=== PATIENT | female | born 1985 | race Caucasian/White ===

== ENCOUNTER 2023-03-04 09:30 | Outpatient (CLI) | payer OTHER, SELFPAY | END 2023-03-04 09:31 | disposition home or self-care (01) | LOC: NFLDREF 03-06 09:15 | PROVIDERS: Visit Provider Nurse Practitioner Family | DX: R50.9 Fever, unspecified (principal); N12 Tubulo-interstitial nephritis, not specified as acute or chronic | CPT/HCPCS: 87086; 87186 ==

== ENCOUNTER 2023-05-24 14:56 | Outpatient (CLI) | payer OTHER, SELFPAY | END 2023-05-24 14:57 | disposition home or self-care (01) | LOC: NFLDREF 05-31 16:23 | PROVIDERS: Visit Provider Nurse Practitioner Family | DX: R30.0 Dysuria (principal); M54.50 Low back pain, unspecified | CPT/HCPCS: 87086 ==

== ENCOUNTER 2024-08-20 17:35 | Emergency (ER) | payer OTHER, SELFPAY ==
--- OUTSIDE RECORDS SUMMARY | 2024-08-20 17:36 | XMS_ITS | Encounter Summary ---
Author Organization [facility] Address [address] [place] [address] Care Team Providers Care Yarding Supervisor Name Role Phone Pcp, Pt Declines Primary Care Provider [phone] Encounter Details Date Type Department Care Team (Late st Contact Info) Description 07/15/2014 Correspondence [facility] Psychiatry [address] [place] [address] Michaela Morrissey MD [address] [place] [address] STATEMENT OF NON COVERAGE Social History Tobacco Use Types Packs/Day Years Used Date Smoking Tobacco: Former Cigarettes 0.3 4 0 10/21/2008 - 10/21/2012 Smokeless Tobacco: Never Alcohol Use Standard Drinks/Week Comments Yes 0 (1 standard drink = 0.6 oz pur e alcohol) social/holidays Comments No Sex and Gender Information Value Date Recorded Sex Assigned at Not on file Legal Sex Female 6:11 AM CDT Gender Identity Not on file Sexual Orientation Not on file Occupation Industry Job Start Date Job End Date [employer] Not on file Not on file 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 [address] Natalya Nguyen MD [address] [place] [address] documented as of this encounter Visit Diagnoses Not on filedocumented in this encounter Additional Health Concerns Infection Onset Date Last Indicated Resolved Time R/O COVID19 03/30/2020 03/30/2020 03/31/2020 9:53 AM AGENCY SALES DIRECTOR documented as of this encounter Care Teams Yarding Supervisor Relationship Specialty Start Date End Date Pcp, [place] [address] PCP - General 12/22/17 documented as of this encounter
--- OUTSIDE RECORDS SUMMARY | 2024-08-20 17:36 | XMS_ITS | Encounter Summary ---
Author Organization [facility] Address [address] [place] [address] Care Team Providers Care Enrollment Processor Name Role Phone Pcp, Pt Declines Primary Care Provider [phone] Encounter Details Date Type Department Care Team (Late st Contact Info) Description 10/29/2013 Emergency Room External to [facility] B[facility] Social History Tobacco Use Types Packs/Day Years [...] Industry Job Start Date Job End Date Not on file Not on file Not on file Not on file documented as of this encounter Plan of Treatment Upcoming Encounters Date Type Department Care Team (Late st Contact Info) Description 09/05/2024 2:00 PM CDT Appointment [place] [address] Allergy [address] [facility] [place] [address] Natalya Nguyen MD [address] [place] [address] documented as of this encounter Visit Diagnoses Not on filedocumented in this encounter Additional Health Concerns Infection Onset Date Last Indicated Resolved Time R/O COVID19 03/30/2020 03/30/2020 03/31/2020 9:53 AM SHOWROOM CONSULTANT documented as of this encounter Care Teams Enrollment Processor Relationship Specialty Start Date End Date Pcp, [place] [address] PCP - General 12/22/17 documented as of this encounter
--- OUTSIDE RECORDS SUMMARY | 2024-08-20 17:37 | XMS_ITS | Encounter Summary ---
Author Organization [facility] Address [address] [place] [address] Care Team Providers Care Picker/Puller Name Role Phone Pcp, Pt Declines Primary Care Provider [phone] Reason for Visit * Reason Comments Refill INCASSIA 0.35 MG tab let [Pharmacy Med Name: INCASSIA 0.35 MG TABLET] Encounter Details Date Type Department Care Team (Late st Contact Info) Description 08/06/2024 Refill [facility] [address] [place] [address] Trinity Lamar, FUEL VERIFICATION TECHNICIAN, [facility] [address] [place], [place] [id number] Refill (INCASSIA 0.35 MG tablet [Pharmacy Med Name: INCASSIA 0.35 MG TABLET]) Social History Tobacco Use Types Packs/Day Years Used Date Smoking Tobacco: Never Cigarettes 0.3 4 - 10/21/2012 Smokeless Tobacco: Never Alcohol Use Standard Drinks/Week Comments Yes 0 (1 standard drink = 0.6 oz pur e alcohol) social/holidays PHQ-2 Answer Date Recorded PHQ-2 Score 2 10/30/2023 Financial Resource Strain Answer Date R ecorded Is it hard for you to pay fo r the very basics like food, housing, medical care or heating? No 10/30/2023 Food Insecurity Answer Date Recorded Does your food run out before you have the money to buy more? No 10/30/2023 Transportation Needs Answer Date Record ed Does a lack of transportatio n keep you from your medical appointments or from getting your medications? 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 Sujatha Lr RN SP wood miller Triage 08/06/2024, 12:50 PM * Heri Smith Xrwcomm - 08/06/2024 11:54 AM CDT INCASSIA 0.35 MG tablet [Pharmacy Med Name: INCASSIA 0.35 MG TABLET] Medication started: 10/11/2023 Last ordered by TRINITY LAMAR: 10/11/2023 (300 days ago) QTY: 84, Refills: 3, Sig: take 1 tablet (0.35 mg) by mouth daily. (changed but equivalent) -> Refill x 3 months (until due for an office visit) Last qualifying visit: 10/11/2023 (with TRINITY LAMAR) Next scheduled visit: [facility] Embedded Refills, Reference: [id number], 08/06/2024 11:54:32 AM CDT, Pool: FARHEEN RICH REFILL OB/ FBI PROFILER [[id number]] ([id number]) documented in this encounter Plan of Treatment Upcoming Encounters Date Type Department Care Team (Late st Contact Info) Description 09/05/2024 2:00 PM CDT Appointment [facility] [address] [place] [address]. [place] [address] Natalya Nguyen MD [address] [place] [phone] documented as of this encounter Visit Diagnoses Diagnosis Oral contraceptive pill surveillance Surveillance of previously prescribed contraceptive pill documented in this encounter Care Teams Picker/Puller Relationship Specialty Start Date End Date Pcp, Mayank Peguero MD [place], [place] [phone] PCP - General 12/22/17 documented as of this encounter
--- OUTSIDE RECORDS SUMMARY | 2024-08-20 17:37 | XMS_ITS | Clinical Summary ---
Author Organization [facility] Address [address] [place] [address] Care Team Providers Care Grassland Conservationist Name Role Phone Pcp, Pt Declines Primary Care Provider [phone] Source Comments You are receiving this document as you are listed as the primary care provider,follow-up provider, or the patient has been referred to you for consultation.This is in compliance with the Medicare andKindred Healthcarecaid EHR Incentive Program,which states Providers who transition their patient to another setting of careor provider of care or refers their patient to another provider of care shouldprovide summary care record for each transition of care or referral. [facility] Allergies No known active allergies Medications * This document contains information received from the source organization and may not represent a complete record from that organization. traZODone (DESYREL) 50 MG tablet Take 1-2 Tablets (50-100 mg) by mouth daily at bedtime. 60 Tablet 4 08/15/19 24 Active ALPRAZolam (XANAX) 0.25 MG tablet Take 1 Tablet (0.25 mg) by mouth two times daily as needed. 20 Tablet 4 08/15/19 24 Active triamcinolone acetonide (KENALOG) 0.1 % creamIndications: Rash and nonspecific skin eruption Apply topically two times a day. 80 g 3 12/29/19 24 Active propranolol (INDERAL) 20 MG tabletIndications :Elevated blood pressure reading without diagnosis of hypertension,Anxi ety ([facility]),Hot flashes TAKE 1-2 TABLETS BY MOUTH TWICE DAILY 360 Tablet 1 04/25/20 24 Active amphetamine-dextr oamphetamine XR (ADDERALL XR) 30 MG 24 hour release capsule Take 1 Capsule (30 mg) by mouth daily. 30 Capsule 05/13/20 24 Active amphetamine-dextr oamphetamine XR (ADDERALL XR) 30 MG 24 hour release capsule Take 1 Capsule (30 mg) by mouth daily for 30 days. 1 of 3 30 Capsule 06/14/19 25 Active amphetamine-dextr oamphetamine XR (ADDERALL XR) 30 MG 24 hour release capsule Take 1 Capsule (30 mg) by mouth daily for 30 days. 2 of 3 Do not start before July 12, 2024. 30 Capsule 07/12/19 25 Active amphetamine-dextr oamphetamine XR (ADDERALL XR) 30 MG 24 hour release capsule Take 1 Capsule (30 mg) by mouth daily for 30 days. 3 of 3 Do not start before August 11, 2024. 30 Capsule 08/12/19 25 025 Active citalopram (CELEXA) 40 MG tablet Take 1 Tablet (40 mg) by mouth daily. Pt is due for an appt with provider. [facility] schedule for further refills [phone] . 30 Tablet 07/27/19 25 Active INCASSIA 0.35 MG tabletIndications :Oral contraceptive pill surveillance TAKE 1 TABLET BY MOUTH EVERY DAY 90 Tablet 08/07/19 25 Active norethindrone, contraceptive, (MICRONOR) 0.35 MG tabletIndications :Oral contraceptive pill surveillance Take 1 Tablet (0.35 mg) by mouth daily. 84 Tablet 3 10/11/19 24 025 Discontinued citalopram (CELEXA) 20 MG tablet Take 2 Tablets (40 mg) by mouth daily. 60 Tablet 4 03/20/20 24 025 Discontinued Active Problems Problem Noted Date Diagnosed Date Depressive disorder 07/19/2010 Overview (01/11/2017): Depressive disorder, not elsewhere classified ([facility]) Attention deficit hyperactivity disorder (ADHD) 07/19/2010 Primary osteoarthritis, left ankle and foot Resolved Problems Problem Noted Date Diagnosed Date Resolved Date Screening for malignant neoplasm of cervix 03/27/2014 06/29/2022 Overview (06/29/2022): From visit on 03/20/14: Previous history of abnormal paps: yes Pt contacted. States her history was abnormal about 8 years ago. She said she needed to go in for a colp but that result was normal. No treatment was needed. All of her pap testing since then has been normal. 2013 NILM 2022 NILM HPV negative 36 y.o. PLAN, per ASCCP Guidelines: Cotest 05/2027 Encounters Date Type Department Care Team Description 08/06/2024 Refill [facility] [address] [place] [address] Trinity Lamar APRN, CNM Refill (INCASSIA 0.35 MG tablet [Pharmacy Med Name: INCASSIA 0.35 MG TABLET]) 07/26/2024 Refill [facility] Psychiatry [address] [place] [address] Michaela Morrissey MD Refill 06/24/2024 2:00 PM [facility] Telemedicine [address] [address] Erick Garg MD Chronic rhinitis (Primary Dx) 06/12/2024 Refill [facility] Psychiatry [address] [place] [address] Michaela Morrissey MD Refill from Last 3 Months Immunizations Immunization Administration Dates Next Due 4vHPV (Gardasil) 12/21/2010 Flu Vac (3+ yrs) 04/22/2011 Influenza IIV4 (Quadrivalent) 0.5mL (41458) 04/22,03/20/2014 MPSV4 (Menomune) 12/24/2002 Moderna Monovalent 12+ 07/09/2020,05/26/2020 Family History Medical History Relation Name Comments Cancer, Breast Mother Coronary Artery Disease Maternal Grandfather ?[place] Macular Degeneration Maternal Grandmother Other Other lung CA Diabetes, Type II Paternal Grandmother Amblyopia/Strabismus Negative Family History Blindness Negative Family History Cataract Negative Family History Glaucoma Negative Family History Retinal Detachment Negative Family History Relation Name Status Comments Father Alive Mother Alive Brother Alive (plus one stepb rother) Maternal Grandfather Maternal Grandmother Other Paternal Grandmother Social History Tobacco Use Types Packs/Day Years Used Date Smoking Tobacco: Never Cigarettes 0.3 4 - 10/21/2012 Smokeless Tobacco: Never Tobacco Cessation:Counseling Given: Not Answered Alcohol Use Standard Drinks/Week Comments Yes 0 [...] Industry Job Start Date Job End Date [employer] Not on file Not on file 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 Not on file Not on file [employer] Not on file Not on file Not on file Last Filed Vital Signs Vital Sign Reading Time Taken Comments Blood Pressure 126/92 12/29/2023 3:10 PM CDT Pulse 88 12/29/2023 3:10 PM CDT Temperature 37 C (98.6 F) 09/06/2021 8:22 AM CDT Respiratory Rate 16 12/29/2023 3:08 PM CDT Oxygen Saturation 100% 12/05/2022 2:50 PM CDT Inhaled Oxygen Concentration - - Weight 90.7 kg (200 lb) 12/29/2023 3:08 PM CDT Height 177.8 cm (5' 10) 12/29/2023 3:08 PM CDT Body Mass Index 28.7 12/29/2023 3:08 PM CDT Plan of Treatment Upcoming Encounters Date Type Department Care Team (Late st Contact Info) Description 09/05/2024 2:00 PM CDT Appointment [facility] 3800 Allergy [address] [facility] [place] [address] Natalya Nguyen MD [address] [place] [address] [place] [address] Health Maintenance Due Date Last Done Comments Diabetes Screening- (based on age and BMI) 1984 Hep C Screening (Preventive Services) 1984 DTaP/Tdap/Td (1 - Tdap) 10/05/2003 HepB (1) 10/05/2003 HPV Vaccine (2 - 3-dose series) 01/18/2011 12/21/2010 COVID-19 Vaccine (3 - season) 2024 07/09/2020, 05/26/2020 Influenza (#1) 2024 05/16/2021, 02/21, 04/22/2011 Adult Preventive Visit 06/16/2024 , 09/25/2018, 12/03/2014, Additional history exists Cervical Cancer Screening 06/16/20272022, 06/16/2022, 03/20/2014 Zoster/Shingles (1 of 2) 2034 MCV4 Aged Out 12/24/2002 No longer eligi ble based on patient's age to complete this topic HIV Screening (Preventive Services) Completed 03/20/2014 HepA Aged Out No longer eligi ble based on patient's age to complete this topic Hib Aged Out No longer eligi ble based on patient's age to complete this topic IPV (Polio) Aged Out No longer eligi ble based on patient's age to complete this topic Meningococcal B Aged Out No longer el igible based on patient's age to complete this topic Pneumococcal Aged Out No longer eligi ble based on patient's age to complete this topic Procedures Procedure Name Priority Date/Time Associated Diagnosis Comments CYTOLOGY (PAP) Routine 06/16/2022 1:17 PM SALES NEGOTIATOR Pap smear for cervical cancer screening HIV ANTIBODY Routine 03/20/2014 2:26 PM CDT Screen for STD (sexually transmitted disease) from Last 3 Months or Most Recently Relevant to Health Maintenance Results * PAP Test (06/16/2022 1:17 PM SALES NEGOTIATOR) Case Report Pap Case: [id number] Authorizing Provider: Trinity Lamar APRN, CNM Collected: 06/16/2022 1317 Ordering Location: [facility] Received: 06/16/2022 1340 [facility] Clinic First Screen: Susan Valenzuela CT (ASCP) Specimen: Pap Test, Routine, Cervix/Endocervix 06/29/2022 10:13 AM [facility] Pap Specimen Adequacy Satisfactory for evaluation, endocervical/miramontes sformation zone component present. 06/29/2022 10:13 AM [facility] Pap Interpretation (NILM) Negative for intraepithelial lesion or malignancy. 06/29/2022 10:13 AM [facility] at 1013 SALES NEGOTIATOR Pap Disclaimer The Pap test is a screening test designed to aid in the detection of cervical cancer and its precursor lesions. It is not a diagnostic procedure and should not be used as the sole means of detecting cervical cancer. Both false-positive and false-negative results may occur. 06/29/2022 10:13 AM [facility] Gross Description The specimen is received in SurePath fixative and properly labeled. 1 Pap-stained SurePath slide is prepared. 06/29/2022 10:13 AM [facility] Embedded Images 10:13 AM [facility] Other Specimen Type ENTIRE ENDOCERVIX / Unknown 06/16/2022 1:17 PM SALES NEGOTIATOR 06/16/2022 1:40 PM SALES NEGOTIATOR Comment:LMP: No LMP recorded . us Trinity Lamar APRN, CNM LAB PATHOLOGY Final Res ult [address] [address], [facility] [phone] * HIV ANTIBODY (03/20/2014 2:26 PM CDT) HIV 1/2 Antibody Negative (Non Reactive) NEGNR [facility] Comment: HIV Antibody testing may be falsely negative during the window period. If the patient has had recent exposure (within the past four weeks), consider contacting Infectious Diseases for clarification. 03/20/2014 2:26 PM CDT 03/20/2014 2:34 PM CDT Narrative [facility] - 03/21/2014 12:25 PM CDT Performed at [facility], [address] [place] [address] Brandon Beach APRN, CNM LAB_1 Final Result [facility] [phone] from Last 3 Months or Most Recently Relevant to Health Maintenance Insurance MEDICA ELECT MEDICA ELECT [address] [facility] [address] [place] [id number] evolso evolso evolso Care Teams Grassland Conservationist Relationship Specialty Start Date End Date Pcp, [place] [address] PCP - General 12/22/17
--- OUTSIDE RECORDS SUMMARY | 2024-08-20 17:37 | XMS_ITS | Clinical Summary ---
Author Organization [facility] [facility] Address [address] [place] [address] Care Team Providers Care Epic Director Name Role Phone Pcp, No Primary Care Provider Unavailabl e Allergies No known active allergies Medications No known medications Encounters Date Type Department Care Team Description 06/07/2024 8:41 PM INTERNATIONAL ACCOUNT EXECUTIVE - 06/07/2024 9:24 PM INTERNATIONAL ACCOUNT EXECUTIVE Emergency [place] [id number] [place] [address] Sandeep Edge PA Contusion of left elbow, initial encounter (Primary Dx) Discharge Disposition: Home Self Care 06/07/2024 Travel from Last 3 Months Social History Tobacco Use Types Packs/Day Years Used Date Smoking Tobacco: Never Assessed Comments No Sex and Gender Information Value Date Recorded Sex Assigned at Not on file Legal Sex Female 7:39 AM INTERNATIONAL ACCOUNT EXECUTIVE Gender Identity Not on file Sexual Orientation Not on file Obstetrics History Last Filed Vital Signs Vital Sign Reading Time Taken Comments Blood Pressure 128/91 06/07/2024 8:16 PM INTERNATIONAL ACCOUNT EXECUTIVE Pulse 100 06/07/2024 8:16 PM INTERNATIONAL ACCOUNT EXECUTIVE Temperature 36.1 C (97 F) 06/07/2024 8:16 PM INTERNATIONAL ACCOUNT EXECUTIVE Respiratory Rate 16 06/07/2024 8:16 PM INTERNATIONAL ACCOUNT EXECUTIVE Oxygen Saturation 97% 06/07/2024 8:16 PM INTERNATIONAL ACCOUNT EXECUTIVE Inhaled Oxygen Concentration - - Weight 83.9 kg (185 lb) 06/07/2024 8:16 PM INTERNATIONAL ACCOUNT EXECUTIVE Height 177.8 cm (5' 10) 06/07/2024 8:16 PM INTERNATIONAL ACCOUNT EXECUTIVE Body Mass Index 26.54 06/07/2024 8:16 PM INTERNATIONAL ACCOUNT EXECUTIVE Plan of Treatment Health Maintenance Due Date Last Done Comments Tdap 10/05/1995 Depression screening for age 12+ 1996 HIV for age 15-65 10/05/1999 BMI (ht and wt on same day) for age 18+ 2002 Hepatitis C screening for ag e 18-79 2002 Tetanus booster 2004 Pap test for age 21-65 2005 (IA) Influenza for age 9-49 01/21/2024 COVID-19 vaccine series ( season) 2024 07/09/2020, 05/26/2020 Pneumococcal series for age 6-49 Aged Out No longer eligible b ased on patient's age to complete this topic Procedures Procedure Name Priority Date/Time Associated Diagnosis Comments XR ELBOW 3 VIEWS LEFT STAT 06/07/2024 8:42 PM INTERNATIONAL ACCOUNT EXECUTIVE from Last 3 Months Results * XR ELBOW 3 VIEWS LEFT (06/07/2024 8:42 PM INTERNATIONAL ACCOUNT EXECUTIVE) Anatomical Region Laterality Modality ELBOW L Digital Radiogra phy 06/07/2024 9:02 PM INTERNATIONAL ACCOUNT EXECUTIVE Narrative 06/07/2024 9:02 PM INTERNATIONAL ACCOUNT EXECUTIVE For Patients: As a result of the Cures Act, medical imaging exams and procedure reports are released immediately into your electronic medical record. You may view this report before your referring provider. If you have questions, please contact your health care provider. Indication: Left elbow pain and swelling. Technique: Three views of the left elbow. Comparison: None. Findings: No acute fracture, dislocation, or suspicious osseous lesion. Radio capitellar and humeral ulnar alignment are maintained. No elbow joint effusion. Minimal posterior soft tissue swelling. No suspicious soft tissue calcifications. Impression: No acute osseous abnormality. Minimal posterior soft tissue swelling. Correlate for mild bursitis. Dictated by John Flores MD @ 06/07/2024 9:02:45 PM (Electronically Signed) Procedure Note John Flores MD - 06/07/2024 For Patients: As a result of the Cures Act, medical imagingexams and procedure reports are released immediately into your electronicmedical record. You may view this report before your referring provider.If you have questions, please contact your health care provider. Indication: Left elbow pain and swelling. Technique: Three views of the left elbow. Comparison: None. Findings: No acute fracture, dislocation, or suspicious osseous lesion. Radiocapitellar and humeral ulnar alignment are maintained. No elbow jointeffusion. Minimal posterior soft tissue swelling. No suspicious softtissue calcifications. Impression: No acute osseous abnormality. Minimal posterior soft tissue swelling.Correlate for mild bursitis. Dictated by John Flores MD @ 06/07/2024 9:02:45 PM (Electronically Signed) us [facility] Triage GENERAL IMAGING Final Result from Last 3 Months [place] [id number] * Guarantor: WAD CONTRACT,[facility] Account Type Relation to Patient Date of Phone Billing Address Contract [address] [facility] [address] [place] [address] Care Teams Epic Director Relationship Specialty Start Date End Date Pcp, No . PCP - General 06/28/18
--- OUTSIDE RECORDS SUMMARY | 2024-08-20 17:37 | XMS_ITS | Encounter Summary ---
Author Organization [employer] Address [address] [place] [address] Care Team Providers Care Brief Writer Name Role Phone Pcp, Pt Declines Primary Care Provider [phone] Reason for Visit * Reason Comments Refill Encounter Details Date Type Department Care Team (Late st Contact Info) Description 07/26/2024 Refill [facility] Psychiatry [address] [place] [address] Michaela Morrissey MD [address] [place] [address] Refill Social History Tobacco Use Types Packs/Day Years [...] Industry Job Start Date Job End Date 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 No follow up appointment scheduled. Will route to [place] to attempt to schedule patient. You may close the encounter once pt has been scheduled or after 1 attempt made. FORM SOFTWARE ENGINEER documented in this encounter Plan of Treatment Upcoming Encounters Date Type Department Care Team (Late st Contact Info) Description 09/05/2024 2:00 PM CDT Appointment [facility] 3800 Allergy [address] [facility] [place], [place] [phone] Natalya Nguyen MD [address] [place] [phone] documented as of this encounter Visit Diagnoses Not on filedocumented in this encounter Care Teams Brief Writer Relationship Specialty Start Date End Date Pcp, Pt MD Marielena [place], [place] [id number] PCP - General 12/22/17 documented as of this encounter
--- OUTSIDE RECORDS SUMMARY | 2024-08-20 17:37 | XMS_ITS | Encounter Summary ---
[facility] Address [address] [place] [address] Care Team Providers Care Contract Negotiator Name Role Phone Pcp, Pt Declines Primary Care Provider [phone] Encounter Details Date Type Department Care Team (Late st Contact Info) Description 06/24/2016 Correspondence External to External, [place] [address] PRIOR AUTHORIZATION Social History Tobacco Use Types Packs/Day Years [...] Industry Job Start Date Job End Date [employer] Not on file Not on file Not o n file [employer] Not on file Not on file Not on file [employer] Not on file Not on file Not on file documented as of this encounter Plan of Treatment Upcoming Encounters Date Type Department Care Team (Late st Contact Info) Description 09/05/2024 2:00 PM CDT Appointment [facility] [address] [facility] [place] [address] Natalya Nguyen MD [address] [place] [address] documented as of this encounter Visit Diagnoses Not on filedocumented in this encounter Additional Health Concerns Infection Onset Date Last Indicated Resolved Time R/O COVID19 03/30/2020 03/30/2020 03/31/2020 9:53 AM GENERAL OPERATOR documented as of this encounter Care Teams Contract Negotiator Relationship Specialty Start Date End Date Pcp, [place] [address] PCP - General 12/22/17 documented as of this encounter
--- OUTSIDE RECORDS SUMMARY | 2024-08-20 17:37 | XMS_ITS | Clinical Summary ---
Author Organization [facility] Address [address] [place] [address] Care Team Providers Care Administrative Library Assistant Name Role Phone [facility] Primary Care Provider Allergies No known active allergies Medications Amphetamine-Dext roamphetamine (ADDERALL PO) Take 30 mg by mouth as needed Active norgestimate-eth inyl estradiol (ORTHO-CYCLEN, SPRINTEC) 0.25-35 MG-MCG tablet Take 1 tablet by mouth daily Active Social History Tobacco Use Types Packs/Day Years Used Date Smoking Tobacco: Former Cigarettes Q uit: 10/20/2012 Smokeless Tobacco: Never Alcohol Use Standard Drinks/Week Comments Yes 0 (1 standard drink = 0.6 oz pur e alcohol) occ Adolescent Education Answer Date Record ed Getting School Help Needed Not on file 02/20 Comments No Sex and Gender Information Value Date Recorded Sex Assigned at Not on file Legal Sex Female 3:34 AM DEVELOPMENT PROFESSIONAL Gender Identity Not on file Sexual Orientation Not on file Last Filed Vital Signs Vital Sign Reading Time Taken Comments Blood Pressure 139/100 07/13/2022 2:39 AM DEVELOPMENT PROFESSIONAL Pulse 84 07/13/2022 2:39 AM DEVELOPMENT PROFESSIONAL Temperature 36.4 C (97.6 F) 07/13/2022 2:39 AM DEVELOPMENT PROFESSIONAL Respiratory Rate 16 07/13/2022 2:39 AM DEVELOPMENT PROFESSIONAL Oxygen Saturation 100% 07/13/2022 2:39 AM DEVELOPMENT PROFESSIONAL Inhaled Oxygen Concentration - - Weight 84 kg (185 lb 1.6 oz) 05/15/2017 9:20 AM DEVELOPMENT PROFESSIONAL Height 177.8 cm (5' 10) 07/06/2015 1:42 PM DEVELOPMENT PROFESSIONAL Body Mass Index 26.56 07/06/2015 1:42 PM DEVELOPMENT PROFESSIONAL Plan of Treatment Health Maintenance Due Date Last Done Comments ADVANCE CARE PLANNING 1984 ANNUAL REVIEW OF HM ORDERS 1984 YEARLY PREVENTIVE VISIT 10/05/1987 HIV SCREENING 10/05/1999 HEPATITIS C SCREENING 2002 HEPATITIS B IMMUNIZATION (1 of 3 - 19+ 3-dose series) 10/05/2003 DIABETES SCREENING 09/13/2010 09/14/2007 HPV IMMUNIZATION (2 - 3-dose series) 01/18/2011 12/21/2010 COVID-19 Vaccine (3 - season) 2024 07/09/2020, 05/26/2020 INFLUENZA VACCINE (#1) 2024 , 05/16/2021, 03/28/2020, Additional history exists PHQ-2 (once per calendar year) 2024 PAP 06/16/2025 06/16/2022, 06/16/2022 DTAP/TDAP/TD IMMUNIZATION (3 - Td or Tdap) 02/28/2030 02/29/2020, 10/16/2009 ZOSTER IMMUNIZATION (1 of 2) 2034 MENINGITIS IMMUNIZATION Aged Out 10/16/2009, 12/24 No longer eligible based on patient's age to complete this topic Pneumococcal Vaccine: Pediatrics (0 to 5 Years) and At-Risk Patients (6 to 49 Years) Aged Out No longer eligible based on patient's age to complete this topic Procedures Procedure Name Priority Date/Time Associated Diagnosis Comments COMPREHENSIVE METABOLIC PANEL STAT 09/14/2007 7:45 PM CDT from Last 3 Months or Most Recently Relevant to Health Maintenance Results * (ABNORMAL) Comprehensive metabolic panel (09/14/2007 7:45 PM CDT) Sodium 140 133 - 144 mmol/L [facility] Potassium 3.3(L) 3.4 - 5.3 mmol/L [facility] Chloride 98 94 - 109 mmol/L [facility] Carbon Dioxide 31 20 - 32 mmol/L [facility] Glucose 95 60 - 99 mg/dL [facility] Urea Nitrogen 8 5 - 24 mg/dL [facility] Creatinine 0.99 0.60 - 1.30 mg/dL [facility] GFR Estimate 75 >60 mL/min/1.7 m2 [facility] GFR Estimate If Black >90 >60 mL/min/1.7 m2 [facility] Calcium 9.1 8.5 - 10.4 mg/dL [facility] AST 33 0 - 45 U/L [facility] Protein Total 8.5(H) 6.0 - 8.2 g/dL [facility] Anion Gap 11 6 - 17 mmol/L [facility] Albumin 4.9(H) 3.3 - 4.6 g/dL [facility] ALT 12 0 - 50 U/L [facility] Alkaline Phosphatase 94 40 - 150 U/L [facility] Bilirubin Total 0.7 0.2 - 1.3 mg/dL [facility] 09/14/2007 7:45 PM CDT 09/14/2007 7:48 PM CDT us Trista Bonilla MD LAB - BLOOD ORDERABLES Marni dobson Result MISYS from Last 3 Months or Most Recently Relevant to Health Maintenance Insurance MEDICA ELECT none (Work) [id number] [place] [id number] [employer] [facility] Care Teams Administrative Library Assistant Relationship Specialty Start Date End Date Clinic, [facility] [address] [place] [address] PCP - General 10/29/13
--- OUTSIDE RECORDS SUMMARY | 2024-08-20 17:37 | XMS_ITS | Continuity of Care Document ---
Author Name [facility] Organization [facility] Care Team Providers Care Dry Heat Cabinet Attendant Name Role Phone [facility] Unavailable Unavailable Immunizations Combined list of available immunizations from the Department of Defense and Veterans Affairs facilities. Immunization Series Date Given Administered By Site Reaction Lot Number CVX Code Drug Supervisor Engraving Status Comments Source influenza, injectable, quadrivalent 2021 [id number] sanofi pasteur complet ed influenza , injectabl e, quadrival ent 04/22/22 Given Ambulat ory Pharmac y influenza, injectable, quadrivalent- pf 2020 [id number] 150 sanofi pasteur complet ed influenza , injectabl e, quadrival ent-pf 05/16/21 Given Ambulat ory Pharmac y COVID Vaccine Moderna 2020 TRANSCR IBED 207 complet ed COVID Vaccine Moderna 07/09/20 Given Ambulat ory Pharmac y COVID Vaccine Moderna 2020 TRANSCR IBED 207 complet ed COVID Vaccine Moderna 05/26/20 Given Ambulat ory Pharmac y influenza, injectable, quadrivalent- pf 2019 [id number] 150 Seqirus complet ed influenza , injectabl e, quadrival ent-pf 03/28/20 Given Ambulat ory Pharmac y tetanus-dipht h toxoids (Td) adult/adol 2019 [id number] sanofi pasteur complet ed tetanus-d iphth toxoids (Td) adult/ado l 02/29/20 Given Ambulat ory Pharmac y influenza, injectable, quadrivalent- pf 2018 [id number] 150 Seqirus complet ed influenza , injectabl e, quadrival ent-pf 04/28/19 Given Ambulat ory Pharmac y measles/mumps /rubella virus vaccine 2018 [id number] Merck & Company Inc complet ed measles/m umps/rube lla virus vaccine 09/22/18 Given Ambulat ory Pharmac y typhoid Vi capsular polysaccharid e vac 2018 [id number] sanofi pasteur complet ed typhoid Vi capsular polysacch aride vac 09/22/18 Given Ambulat ory Pharmac y anthrax vaccine 2018 [id number] Emergent Biosolutions complet ed anthrax vaccine 08/26/18 Given Ambulat ory Pharmac y influenza, injectable, quadrivalent- pf 2017 [id number] 150 Seqirus complet ed influenza , injectabl e, quadrival ent-pf 03/25/18 Given Ambulat ory Pharmac y influenza, injectable, quadrivalent 2016 [id number] Reelation ok complet ed influenza , injectabl e, quadrival ent 03/25/17 Given Ambulat ory Pharmac y influenza, seasonal, injectable-pf 2015 [id number] CSL Behring complet ed influenza , seasonal, injectabl e-pf 03/26/16 Given Ambulat ory Pharmac y anthrax vaccine 2014 [id number] Emergent Biosolutions complet ed anthrax vaccine 04/03/15 Given Ambulat ory Pharmac y influenza, injectable, quadrivalent- pf 2014 [id number] ID Biomedical comple t ed influenza , injectabl e, quadrival ent-pf 03/16/15 Given Ambulat ory Pharmac y typhoid Vi capsular polysaccharid e vac 2014 [id number] sanofi pasteur complet ed typhoid Vi capsular polysacch aride vac 08/30/14 Given Ambulat ory Pharmac y anthrax vaccine 2014 [id number] Emergent Biosolutions complet ed anthrax vaccine 08/30/14 Given Ambulat ory Pharmac y influenza virus vaccine, unspecified 2013 TRANSCR IBED 88 complet ed influenza virus vaccine, unspecifi ed 03/20/14 Given Ambulat ory Pharmac y Influenza, injectable, MDCK-pf 2012 [id number] 153 Novartis Pharmaceutica ls complet ed Influenza , injectabl e, MDCK-pf 03/23/13 Given Ambulat ory Pharmac y Influenza, injectable, MDCK-pf 2012 [id number] 153 Novartis Pharmaceutica ls complet ed Influenza , injectabl e, MDCK-pf 03/23/13 Given Ambulat ory Pharmac y influenza, seasonal, injectable-pf 2011 [id number] 140 sanofi pasteur complet ed influenza , seasonal, injectabl e-pf 03/05/12 Given Ambulat ory Pharmac y influenza, seasonal, injectable-pf 2011 [id number] 140 sanofi pasteur complet ed influenza , seasonal, injectabl e-pf 03/05/12 Given Ambulat ory Pharmac y influenza, seasonal, injectable 2010 141 Novartis Pharmaceutica ls complet ed influenza , seasonal, injectabl e 04/22/11 Given Ambulat ory Pharmac y influenza, seasonal, injectable 2010 141 Novartis Pharmaceutica ls complet ed influenza , seasonal, injectabl e 04/22/11 Given Ambulat ory Pharmac y hepatitis A adult vaccine 2010 [id number] 52 GlaxoSmithKli ne complet ed hepatitis A adult vaccine 05/29/10 Given Ambulat ory Pharmac y hepatitis A adult vaccine 2010 [id number] 52 GlaxoSmithKli ne complet ed hepatitis A adult vaccine 05/29/10 Given Ambulat ory Pharmac y influenza virus vaccine,split 2009 [id number] CSL Behring complet ed influenza virus vaccine,s plit 02/25/10 Given Ambulat ory Pharmac y influenza virus vaccine,split 2009 [id number] 15 CSL Behring complet ed influenza virus vaccine,s plit 02/25/10 Given Ambulat ory Pharmac y hepatitis A adult vaccine 2009 [id number] 52 GlaxoSmithKli ne complet ed hepatitis A adult vaccine 10/21/09 Given Ambulat ory Pharmac y hepatitis A adult vaccine 2009 [id number] 52 GlaxoSmithKli ne complet ed hepatitis A adult vaccine 10/21/09 Given Ambulat ory Pharmac y tuberculin purified protein derivative 2009 [id number] 96 sanofi pasteur complet ed tuberculi n purified protein derivativ e 10/18/09 Given Ambulat ory Pharmac y Novel influenza-H1N 1-09, injectable 2009 [id number] 127 Novartis Pharmaceutica ls complet ed Novel influenza -[id number], injectabl e 10/16/09 Given Ambulat ory Pharmac y tetanus, diphtheria, acellular pertu is 2009 [id number] 115 GlaxoSmithKli ne complet ed tetanus, diphtheri a, acellular pertussis 10/16/09 Given Ambulat ory Pharmac y influenza virus vaccine,split 2009 [id number] 15 CSL Behring complet ed influenza virus vaccine,s plit 10/16/09 Given Ambulat ory Pharmac y meningococcal A,C,Y,W-135 (MCV4P) 2009 [id number] 114 sanofi pasteur complet ed meningoco ccal A,C,Y,W-1 35 (MCV4P) 10/16/09 Given Ambulat ory Pharmac y poliovirus vaccine, inactivated 2009 [id number] 10 sanofi pasteur complet ed polioviru s vaccine, inactivat ed 10/16/09 Given Ambulat ory Pharmac y tetanus, diphtheria, acellular pertu is 2009 [id number] 1CA 115 GlaxoSmithKli ne complet ed tetanus, diphtheri a, acellular pertussis 10/16/09 Given Ambulat ory Pharmac y poliovirus vaccine, inactivated 2009 [id number] 10 sanofi pasteur complet ed polioviru s vaccine, inactivat ed 10/16/09 Given Ambulat ory Pharmac y meningococcal A,C,Y,W-135 (MCV4P) 2009 [id number] 114 sanofi pasteur complet ed meningoco ccal A,C,Y,W-1 35 (MCV4P) 10/16/09 Given Ambulat ory Pharmac y Novel influenza-H1N 1-09, injectable 2009 [id number] 1 127 Novartis Pharmaceutica ls complet ed Novel influenza -H4X0-72, injectabl e 10/16/09 Given Ambulat ory Pharmac y Procedures Combined list of: 1) Procedures from Department of Veterans Affairs facilities [facility], not all VA non-surgical procedures are included; 2) All procedures from the Department of Defense facilities. Procedure Procedure Type Code Date Perfomer Comments Sourc e No data available for this section Ambulatory P harmacy Assessment and Plan Combined list of future care activities from Department of Defense and Veterans Affairs facilities (e.g., assessment and plan notes, appointments, orders, and referrals). Additional future care activities may be listed in the Plan of Care section. Result Assessment and Plan Date Source Assessment and Plan No data available for this section 08/20/2024 Ambulatory Pharmacy Functional Status Combined list of recent functional and cognitive assessments recorded at Department of Defense and Veterans Affairs (VA).VA Functional Owen Measurement (FIM) Scale: 1 = Total Assistance (Subject = 0% +), 2 = Maximal Assistance (Subject = 25% +), 3 = Moderate Assistance (Subject = 50% +), 4 = Minimal Assistance (Subject = 75% +), 5 = Supervision, 6 = Modified Owen (Device), 7 = Complete Owen (Timely, Safely). Assessment Date/Time Source Assessment Type Assessment Skill Assessment Score Assessment Details No data available for this section
[2024-08-20 17:40] VITALS: BP 127/87; PULSE 78; RESP 18; TEMP 36.7; O2SAT 97; BMI 24.4
--- NOTE | 2024-08-20 17:51 | ED.GENADULT ---
HPI - General Adult General Chief complaint: Epistaxis/Nosebleed Stated complaint: bloody nose Time Seen by Provider: 08/20/24 17:44 History of Present Illness HPI narrative: Patient presents to the emergency department complaining of frequent bloody noses. Patient states this first began monday morning. Patient states when her nose starts bleeding they last about half an hour. Patient has woken up with blood on her bedding. Complains of some dizziness as well. 38-year-old woman presenting to the emergency department with concern of nose bleed. Primarily coming from the left nare but has apparently come from both sides before. 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 This has continued but escalated more recently when she has been found couple of times in a puddle of blood after falling asleep. She does refer to allergies and has had some long-term irritation deep in her throat. Acknowledges postnasal drip and is anticipating seeing ENT later this month. Dizziness mentioned on triage appears to be more related to rough shift work often working nights and she is quite tired at this point. Perhaps more of a buzzing and very fatigued. Not lightheaded or short of breath. Related Data Home Medications ?Medication ?Instructions ?Recorded ?Confirmed dextroamphetamine-amphetamine ER 1 cap PO DAILY 03/04/23 08/20/24 30 mg 24hr capsule,extend release trazodone 50 mg tablet 100 mg PO QPM PRN 03/04/23 08/20/24 alprazolam 0.25 mg tablet mg PO 10/03/23 10/03/23 citalopram 20 mg tablet 20 mg PO DAILY 10/03/23 08/20/24 norethindrone (contraceptive) 0.35 0.35 mg PO DAILY 08/20/24 08/20/24 mg tablet (Incassia) Allergies Allergy/AdvReac Type Severity Reaction Status Date / Time No Known Drug Allergies Allergy Verified 08/20/24 17:46 Review of Systems Status of ROS: Reports: 6 or more systems reviewed and unremarkable except as noted in History and below [facility] Medical History Pyelonephritis ?N12 - Tubulo-interstitial nephritis, not specified as acute or chronic (ICD-10) Fever ?R50.9 - Fever, unspecified (ICD-10) Social History Smoking Status: Never smoker How often do you have a drink containing alcohol: never How often do you have six or more drinks on one occasion: Never AUDIT-C Alcohol total score: 0 Non-prescribed substance use: denies use service: No Exam Narrative: Exam Narrative: Very pleasant. NAD. No stridor. Breathing easily. Heart in regular rate. Neck is supple without lymphadenopathy. No masses appreciated. No thyromegaly appreciated. Oropharynx is little dry. No evidence of active bleeding or recent bleeding. Very small uvula. Cranial nerves 2-12 intact. There is small dried blood at the left external nare. Nasal septum bilaterally appears somewhat dry. The left side in particular is with inflamed vasculature and more irritated. I would presume that this is the site of frequent bleeding. On neither side do I visualize any unusual mass. Const: Vital Signs, click to edit/add: Vital Signs - 24 hr 08/20/24 17:40 Temperature 98.1 F Pulse Rate [Right Pulse Oximeter] 78 Respiratory Rate 18 Blood Pressure [Ri ght Upper Arm] 127/87 Pulse Oximetry 97 Oxygen Delivery Me thod Room Air Documenting provider has reviewed patient's vital signs: yes Course Vital Signs Vital signs: Initial Vital Signs Temperature 98.1 F 08/20/24 17:40 Temperature Source Temporal Artery Scan 08/20/24 17:40 Pulse Rate 78 08/20/24 17:40 Pulse Rhythm Regular 08/20/24 17:40 Pulse Strength 3+ Normal 08/20/24 17:40 Respiratory Rate 18 08/20/24 17:40 Blood Pressure 127/87 08/20/24 17:40 Blood Pressure Mean 100 08/20/24 17:40 Blood Pressure Position Sitting 08/20/24 17:40 Pulse Oximetry 97 08/20/24 17:40 Oxygen Delivery Method Room Air 08/20/24 17:40 Vital Signs Temperature 98.1 F 08/20/24 17:40 Pulse Rate 78 08/20/24 17:40 Respiratory Rate 18 08/20/24 17:40 Blood Pressure 127/87 08/20/24 17:40 Pulse Oximetry 97 08/20/24 17:40 Oxygen Delivery Method Room Air 08/20/24 17:40 Temperature 98.1 F 08/20/24 17:40 Pulse Rate 78 08/20/24 17:40 Respiratory Rate 18 08/20/24 17:40 Blood Pressure 127/87 08/20/24 17:40 Pulse Oximetry 97 08/20/24 17:40 Oxygen Delivery Method Room Air 08/20/24 17:40 Medical Decision Making MDM Narrative Medical decision making narrative: With likely visualized source of bleeding, I do not think further workup is necessary. Otherwise would discuss sinus CT has part of this workup. Did offer this partly in anticipation of ENT appointment. Perhaps postnasal drip is contributing to the irritation she has been feeling in her throat. Does not have other red flag symptoms I think to necessitate further head imaging. After discussion of options, Ana decided to defer to upcoming ENT appointment. Dispensed with the nose clamp, cotton balls and also discussed oxymetazoline nasal spray. Also given white petroleum jelly See patient discharge plan for further discussion A nasal steroid spray like Nasonex or Rhinocort is available [id number] if you are not using his already and can be particularly helpful with postnasal drip. Need to use it regularly longer-term. Try to keep your nose moist with this white petroleum jelly. Consider applying at least 3 times daily last dosing before going to sleep. Consider also sleeping under the mist of a cool mist humidifier. If does begin to bleed, pack with very lightly moistened cotton balls and apply nose clamp. Can remove cotton balls then a few hours later. Be seen for inability to stop bleeding in about an hour, associated lightheadedness or severe headache. Otherwise I am happy to hear you have ENT follow-up in about 2 weeks. Medical Records Medical records reviewed: Yes I reviewed the patient's medical records Discharge Plan Discharge Clinical Impression: Anterior epistaxis Patient Disposition: Home w/ Parent or Adult Condition: Stable Additional Instructions: A nasal steroid spray like Nasonex or Rhinocort is available [id number] if you are not using his already and can be particularly helpful with postnasal drip. Need to use it regularly longer-term. Try to keep your nose moist with this white petroleum jelly. Consider applying at least 3 times daily last dosing before going to sleep. Consider also sleeping under the mist of a cool mist humidifier. If does begin to bleed, pack with very lightly moistened cotton balls and apply nose clamp. Can remove cotton balls then a few hours later. Be seen for inability to stop bleeding in about an hour, associated lightheadedness or severe headache. Otherwise I am happy to hear you have ENT follow-up in about 2 weeks. Prescriptions: No Action dextroamphetamine-amphetamine 30 mg capsule,extended release 24hr 1 cap PO DAILY trazodone 50 mg tablet 100 mg PO QPM PRN citalopram 20 mg tablet 20 mg PO DAILY alprazolam 0.25 mg tablet PO norethindrone (contraceptive) [Incassia] 0.35 mg tablet 0.35 mg PO DAILY Follow Up/Referrals: Provider,Not a Local [Primary Care Provider] - Stand Alone Forms: Hello [facility] Info Instructions
--- OUTSIDE RECORDS SUMMARY | 2024-08-20 18:40 | XMS_ITS | Continuity of Care Document ---
Author Name [facility] Organization [facility] Care Team Providers Care Db2 Dba Name Role Phone [facility] Unavailable Unavailable Immunizations Combined list of available immunizations from the Department of Defense and Veterans Affairs facilities. Immunization Series Date Given Administered By Site Reaction Lot Number CVX Code Drug Certified Paralegal Status Comments Source influenza, injectable, quadrivalent 2021 [id number] sanofi pasteur complet ed influenza , injectabl e, quadrival ent 04/22/22 Given Ambulat ory Pharmac y influenza, injectable, quadrivalent- pf 2020 [id number] 150 sanofi pasteur complet ed influenza , injectabl e, quadrival ent-pf 05/16/21 Given Ambulat ory Pharmac y COVID Vaccine Moderna 2020 TRANSCR IBED 207 complet ed COVID Vaccine Moderna 07/09/20 Given Ambulat ory Pharmac y COVID Vaccine Moderna 2020 TRANSCR IBED 207 complet ed COVID Vaccine Moderna 05/26/20 Given Ambulat ory Pharmac y influenza, injectable, quadrivalent- pf 2019 [id number] 150 Seqirus complet ed influenza , injectabl e, quadrival ent-pf 03/28/20 Given Ambulat ory Pharmac y tetanus-dipht h toxoids (Td) adult/adol 2019 [id number] 09 sanofi pasteur complet ed tetanus-d iphth toxoids (Td) adult/ado l 02/29/20 Given Ambulat ory Pharmac y influenza, injectable, quadrivalent- pf 2018 [id number] 150 Seqirus complet ed influenza , injectabl e, quadrival ent-pf 04/28/19 Given Ambulat ory Pharmac y measles/mumps /rubella virus vaccine 2018 [id number] Merck & Company Inc complet ed measles/m umps/rube lla virus vaccine 09/22/18 Given Ambulat ory Pharmac y typhoid Vi capsular polysaccharid e vac 2018 [id number] 101 sanofi pasteur complet ed typhoid Vi capsular polysacch aride vac 09/22/18 Given Ambulat ory Pharmac y anthrax vaccine 2018 [id number] 24 Emergent Biosolutions complet ed anthrax vaccine 08/26/18 Given Ambulat ory Pharmac y influenza, injectable, quadrivalent- pf 2017 [id number] 150 Seqirus complet ed influenza , injectabl e, quadrival ent-pf 03/25/18 Given Ambulat ory Pharmac y influenza, injectable, quadrivalent 2016 [id number] 158 ParaEngine ri complet ed influenza , injectabl e, quadrival ent 03/25/17 Given Ambulat ory Pharmac y influenza, seasonal, injectable-pf 2015 [id number] 140 CSL Behring complet ed influenza , seasonal, injectabl e-pf 03/26/16 Given Ambulat ory Pharmac y anthrax vaccine 2014 [id number] 24 Emergent Biosolutions complet ed anthrax vaccine 04/03/15 Given Ambulat ory Pharmac y influenza, injectable, quadrivalent- pf 2014 [id number] 150 ID Biomedical comple t ed influenza , injectabl e, quadrival ent-pf 03/16/15 Given Ambulat ory Pharmac y typhoid Vi capsular polysaccharid e vac 2014 [id number] sanofi pasteur complet ed typhoid Vi capsular polysacch aride vac 08/30/14 Given Ambulat ory Pharmac y anthrax vaccine 2014 [id number] 24 Emergent Biosolutions complet ed anthrax vaccine 08/30/14 Given Ambulat ory Pharmac y influenza virus vaccine, unspecified 2013 TRANSCR IBED 88 complet ed influenza virus vaccine, unspecifi ed 03/20/14 Given Ambulat ory Pharmac y Influenza, injectable, MDCK-pf 2012 [id number] 153 Novartis Pharmaceutica ls complet ed Influenza , injectabl e, MDCK-pf 03/23/13 Given Ambulat ory Pharmac y Influenza, injectable, MDCK-pf 2012 [id number] 153 Novartis Pharmaceutica ls complet ed Influenza , injectabl e, MDCK-pf 03/23/13 Given Ambulat ory Pharmac y influenza, seasonal, injectable-pf 2011 [id number] 140 sanofi pasteur complet ed influenza , seasonal, injectabl e-pf 03/05/12 Given Ambulat ory Pharmac y influenza, seasonal, injectable-pf 2011 [id number] 140 sanofi pasteur complet ed influenza , [...] ory Pharmac y influenza virus vaccine,split 2009 [id number] CSL Behring complet ed influenza virus vaccine,s plit 02/25/10 Given Ambulat ory Pharmac y influenza virus vaccine,split 2009 [id number] 15 CSL Behring complet ed influenza virus [...] Pharmac y tuberculin purified protein derivative 2009 [id number] 96 sanofi pasteur complet ed tuberculi n purified protein derivativ e 10/18/09 Given Ambulat ory Pharmac y Novel influenza-H1N 1-09, injectable 2009 [id number] 127 Novartis Pharmaceutica ls complet ed Novel influenza -[id number], injectabl e 10/16/09 Given Ambulat ory Pharmac y tetanus, diphtheria, acellular pertu is 2009 [id number] 115 GlaxoSmithKli ne complet ed tetanus, diphtheri a, acellular pertussis 10/16/09 Given Ambulat ory Pharmac y influenza virus vaccine,split 2009 [id number] 15 CSL Behring complet ed influenza virus vaccine,s plit 10/16/09 Given Ambulat ory Pharmac y meningococcal A,C,Y,W-135 (MCV4P) 2009 [id number] 114 sanofi pasteur complet ed meningoco ccal A,C,Y,W-1 35 (MCV4P) 10/16/09 Given Ambulat ory Pharmac y poliovirus vaccine, inactivated 2009 [id number] 10 sanofi pasteur complet ed polioviru s vaccine, inactivat ed 10/16/09 Given Ambulat ory Pharmac y tetanus, diphtheria, acellular pertu is 2009 [id number] 1CA 115 GlaxoSmithKli ne complet ed tetanus, diphtheri a, acellular pertussis 10/16/09 Given Ambulat ory Pharmac y poliovirus vaccine, inactivated 2009 [id number] 10 sanofi pasteur complet ed polioviru s vaccine, inactivat ed 10/16/09 Given Ambulat ory Pharmac y meningococcal A,C,Y,W-135 (MCV4P) 2009 [id number] 114 sanofi pasteur complet ed meningoco ccal A,C,Y,W-1 35 (MCV4P) 10/16/09 Given Ambulat ory Pharmac y Novel influenza-H1N 1-09, injectable 2009 [id number] 1 127 Novartis Pharmaceutica ls complet ed Novel influenza -P2M0-54, injectabl e 10/16/09 Given Ambulat ory Pharmac y Procedures Combined list of: 1) Procedures from Department of Veterans Affairs facilities [facility], not all VA non-surgical procedures [...] of Defense and Veterans Affairs (VA).VA Functional [place] Measurement (FIM) Scale: 1 = Total Assistance (Subject = 0% +), 2 = Maximal Assistance (Subject = 25% +), 3 = Moderate Assistance (Subject = 50% +), 4 = Minimal Assistance (Subject = 75% +), 5 = Supervision, 6 = Modified [place] (Device), 7 = Complete [place] (Timely, Safely). Assessment Date/Time Source Assessment Type Assessment Skill Assessment Score Assessment Details No data available for this section
--- OUTSIDE RECORDS SUMMARY | 2024-08-20 18:40 | XMS_ITS | Encounter Summary ---
Author Organization 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 [address] Natalya Nguyen MD [address] [place] [address] documented as of this encounter Visit Diagnoses Not on filedocumented in this encounter Additional Health Concerns Infection Onset Date Last Indicated Resolved Time R/O COVID19 03/30/2020 03/30/2020 03/31/2020 9:53 AM DIAMOND CLEAVER documented as of this encounter Care Teams Cartridge Belt Puncher Relationship Specialty Start Date End Date Pcp, [place] [address] PCP - General 12/22/17 documented as of this encounter
--- OUTSIDE RECORDS SUMMARY | 2024-08-20 18:40 | XMS_ITS | Encounter Summary ---
Author Organization [facility] Address [address] [place] [address] Care Team Providers Care Supervisor Blood Name Role Phone Pcp, Pt Declines Primary Care Provider [phone] Encounter Details Date Type Department Care Team [...] Info) Description 09/05/2024 2:00 PM CDT Appointment [place] [address] All[address] [facility] [place] [address] Natalya Nguyen MD [address] [place] [address] documented as of this encounter Visit Diagnoses Not on filedocumented in this encounter Additional Health Concerns Infection Onset Date Last Indicated Resolved Time R/O COVID19 03/30/2020 03/30/2020 03/31/2020 9:53 AM PROFESSOR OF FINE ART documented as of this encounter Care Teams Supervisor Blood Relationship Specialty Start Date End Date Pcp, [place] [address] PCP - General 12/22/17 documented as of this encounter
--- OUTSIDE RECORDS SUMMARY | 2024-08-20 18:40 | XMS_ITS | Clinical Summary ---
Author Organization [employer] Address [address] [place] [address] Care Team Providers Care Barge Master Name Role Phone [facility] Primary Care Provider Allergies No known active [...] on file Legal Sex Female 3:34 AM LOG DATA TECHNICIAN Gender Identity Not on file Sexual Orientation Not on file Last Filed Vital Signs Vital Sign Reading Time Taken Comments Blood Pressure 139/100 07/13/2022 2:39 AM LOG DATA TECHNICIAN Pulse 84 07/13/2022 2:39 AM LOG DATA TECHNICIAN Temperature 36.4 C (97.6 F) 07/13/2022 2:39 AM LOG DATA TECHNICIAN Respiratory Rate 16 07/13/2022 2:39 AM LOG DATA TECHNICIAN Oxygen Saturation 100% 07/13/2022 2:39 AM LOG DATA TECHNICIAN Inhaled Oxygen Concentration - - Weight 84 kg (185 lb 1.6 oz) 05/15/2017 9:20 AM LOG DATA TECHNICIAN Height 177.8 cm (5' 10) 07/06/2015 1:42 PM LOG DATA TECHNICIAN Body Mass Index 26.56 07/06/2015 1:42 PM LOG DATA TECHNICIAN Plan of Treatment Health Maintenance Due Date [...] MEDICA ELECT none (Work) [address] [facility] [place] [id number] [facility] [employer] [facility] Care Teams Barge Master Relationship Specialty Start Date End Date Clinic, [facility] [address] [place] [address] PCP - General 10/29/13
--- OUTSIDE RECORDS SUMMARY | 2024-08-20 18:41 | XMS_ITS | Encounter Summary ---
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 [address] Natalya Nguyen MD [address] [place] [address] documented as of this encounter Visit Diagnoses Not on filedocumented in this encounter Additional Health Concerns Infection Onset Date Last Indicated Resolved Time R/O COVID19 03/30/2020 03/30/2020 03/31/2020 9:53 AM MEDICAL TECHNICAL WRITER documented as of this encounter Care Teams Political Scientist Relationship Specialty Start Date End Date Pcp, [place] [address] PCP - General 12/22/17 documented as of this encounter
--- OUTSIDE RECORDS SUMMARY | 2024-08-20 18:41 | XMS_ITS | Clinical Summary ---
Author Organization [facility] [facility] Address [address] [place] [address] Care Team Providers Care Management Consulting Name Role Phone Pcp, No Primary Care Provider Unavailabl e Allergies No known active allergies Medications No known medications Encounters Date Type Department Care Team Description 06/07/2024 8:41 PM EARLY EDUCATION TEACHER - 06/07/2024 9:24 PM EARLY EDUCATION TEACHER Emergency [place] [address] [place] [address] Sandeep Edge PA Contusion of left elbow, initial encounter (Primary Dx) Discharge Disposition: Home Self Care 06/07/2024 Travel from Last 3 Months Social History Tobacco Use Types Packs/Day Years Used Date Smoking Tobacco: Never Assessed Comments No Sex and Gender Information Value Date Recorded Sex Assigned at Not on file Legal Sex Female 7:39 AM EARLY EDUCATION TEACHER Gender Identity Not on file Sexual Orientation Not on file Obstetrics History Last Filed Vital Signs Vital Sign Reading Time Taken Comments Blood Pressure 128/91 06/07/2024 8:16 PM EARLY EDUCATION TEACHER Pulse 100 06/07/2024 8:16 PM EARLY EDUCATION TEACHER Temperature 36.1 C (97 F) 06/07/2024 8:16 PM EARLY EDUCATION TEACHER Respiratory Rate 16 06/07/2024 8:16 PM EARLY EDUCATION TEACHER Oxygen Saturation 97% 06/07/2024 8:16 PM EARLY EDUCATION TEACHER Inhaled Oxygen Concentration - - Weight 83.9 kg (185 lb) 06/07/2024 8:16 PM EARLY EDUCATION TEACHER Height 177.8 cm (5' 10) 06/07/2024 8:16 PM EARLY EDUCATION TEACHER Body Mass Index 26.54 06/07/2024 8:16 PM EARLY EDUCATION TEACHER Plan of Treatment Health Maintenance Due Date [...] 3 VIEWS LEFT STAT 06/07/2024 8:42 PM EARLY EDUCATION TEACHER from Last 3 Months Results * XR ELBOW 3 VIEWS LEFT (06/07/2024 8:42 PM EARLY EDUCATION TEACHER) Anatomical Region Laterality Modality ELBOW L Digital Radiogra phy 06/07/2024 9:02 PM EARLY EDUCATION TEACHER Narrative 06/07/2024 9:02 PM EARLY EDUCATION TEACHER For Patients: As a result of the [...] Final Result from Last 3 Months Insurance [facility] * Guarantor: HID CONTRACT,[facility] Account Type Relation to Patient Date of Phone Billing Address Contract [address] [facility] [address] [place] [address] Care Teams Management Consulting Relationship Specialty Start Date End Date Pcp, No . PCP - General 06/28/18
--- OUTSIDE RECORDS SUMMARY | 2024-08-20 18:41 | XMS_ITS | Encounter Summary ---
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 No follow up appointment scheduled. Will route to [place] to attempt to schedule patient. You may close the encounter once pt has been scheduled or after 1 attempt made. ED STATES ATTORNEY documented in this encounter Plan of Treatment Upcoming Encounters Date Type Department Care Team (Late st Contact Info) Description 09/05/2024 2:00 PM CDT Appointment [facility] 3800 Allergy 38[address] [facility]. [place], [place] [address] Natalya Nguyen MD [address] [place] [phone] documented as of this encounter Visit Diagnoses Not on filedocumented in this encounter Care Teams Sample Stitcher Relationship Specialty Start Date End Date Pcp, Pt MD Marielena [place], [place] [address] PCP - General 12/22/17 documented as of this encounter
--- OUTSIDE RECORDS SUMMARY | 2024-08-20 18:41 | XMS_ITS | Clinical Summary ---
Author Organization [employer] Address [address] [place] [address] Care Team Providers Care Director Of Athletics Name Role Phone Pcp, Pt Declines Primary Care Provider [phone] Source Comments You are receiving this document as you are listed as the primary care provider,follow-up provider, or the patient has been referred to you for consultation.This is in compliance with the Medicare and[facility] Hospital[facility] EHR Incentive Program,which states Providers who transition their patient to another setting of careor provider of care or refers their patient to another provider of care shouldprovide summary care record for each transition of care or referral. [employer] Allergies No known active allergies Medications * [...] pressure reading without diagnosis of hypertension,Anxi ety ([facility]),Hot flashes TAKE 1-2 TABLETS BY MOUTH TWICE [...] is due for an appt with provider. [facility] schedule for further refills [phone] . 30 Tablet 07/27/19 25 Active INCASSIA [...] Type Department Care Team Description 08/06/2024 Refill [facility] [address] [place] [address] Trinity Lamar APRN, CNM Refill (INCASSIA 0.35 MG tablet [Pharmacy Med Name: INCASSIA 0.35 MG TABLET]) 07/26/2024 Refill [facility] Psychiatry [address] [place] [address] Michaela Morrissey MD Refill 06/24/2024 2:00 PM [facility] Telemedicine [address] [address] Erick Garg MD Chronic rhinitis (Primary Dx) 06/12/2024 Refill [facility] Psychiatry [address] [place] [address] Michaela Morrissey MD Refill from Last 3 Months Immunizations Immunization Administration Dates Next Due 4vHPV (Gardasil) 12/21/2010 Flu Vac (3+ yrs) 04/22/2011 Influenza IIV4 (Quadrivalent) 0.5mL (34513) 04/22,03/20/2014 MPSV4 (Menomune) 12/24/2002 Moderna Monovalent 12+ 07/09/2020,05/26/2020 Family History Medical History Relation Name Comments Cancer, Breast Mother Coronary Artery Disease Maternal Grandfather ?[place] Macular Degeneration Maternal Grandmother Other Other lung [...] Industry Job Start Date Job End Date [employer] [facility] Not on file 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 [address] Natalya Nguyen MD [address] [place] [address] Health Maintenance Due Date Last Done Comments [...] Comments CYTOLOGY (PAP) Routine 06/16/2022 1:17 PM ACID SPLICER Pap smear for cervical cancer screening HIV ANTIBODY Routine 03/20/2014 2:26 PM CDT Screen for STD (sexually transmitted disease) from Last 3 Months or Most Recently Relevant to Health Maintenance Results * PAP Test (06/16/2022 1:17 PM ACID SPLICER) Case Report Pap Case: [id number] Authorizing Provider: Trinity Lamar APRN, CNM Collected: 06/16/2022 1317 Ordering Location: [facility] Received: 06/16/2022 1340 Gyne[facility] Clinic First Screen: Susan Valenzuela CT (ASCP) Specimen: Pap Test, Routine, Cervix/Endocervix 06/29/2022 10:13 AM [facility] Pap Specimen Adequacy Satisfactory for evaluation, endocervical/miramontes sformation zone component present. 06/29/2022 10:13 AM [facility] Pap Interpretation (NILM) Negative for intraepithelial lesion or malignancy. 06/29/2022 10:13 AM [facility] at 1013 ACID SPLICER Pap Disclaimer The Pap test is a screening test designed to aid in the detection of cervical cancer and its precursor lesions. It is not a diagnostic procedure and should not be used as the sole means of detecting cervical cancer. Both false-positive and false-negative results may occur. 06/29/2022 10:13 AM [facility] Gross Description The specimen is received in SurePath fixative and properly labeled. 1 Pap-stained SurePath slide is prepared. 06/29/2022 10:13 AM [facility] Embedded Images 10:13 AM [facility] Other Specimen Type ENTIRE ENDOCERVIX / Unknown 06/16/2022 1:17 PM ACID SPLICER 06/16/2022 1:40 PM ACID SPLICER Comment:LMP: No LMP recorded . us Trinity Lamar APRN, CNM LAB PATHOLOGY Final Res ult [address] [address], [facility] [phone] * HIV ANTIBODY (03/20/2014 2:26 PM CDT) HIV 1/2 Antibody Negative (Non Reactive) [facility]GNR [facility] Comment: HIV Antibody testing may be falsely negative during the window period. If the patient has had recent exposure (within the past four weeks), consider contacting Infectious Diseases for clarification. 03/20/2014 2:26 PM CDT 03/20/2014 2:34 PM CDT Narrative [facility] - 03/21/2014 12:25 PM CDT Performed at [facility], [address] [place] [address] Brandon Beach APRN, CNM LAB_1 Final Result [facility] [phone] from Last 3 Months or Most Recently Relevant to Health Maintenance Insurance MEDICA ELECT MEDICA ELECT [address] [place] [id number] MED[place] [id number] [employer] Care Teams Director Of Athletics Relationship Specialty Start Date End Date Pcp, [place] [address] PCP - General 12/22/17
--- OUTSIDE RECORDS SUMMARY | 2024-08-20 18:41 | XMS_ITS | Encounter Summary ---
Author Organization [facility] Address [address] [place] [address] Care Team Providers Care Benefits Specialist Name Role Phone Pcp, Pt Declines Primary Care Provider [phone] Reason for Visit * Reason Comments Refill INCASSIA 0.35 MG tab let [Pharmacy Med Name: INCASSIA 0.35 MG TABLET] Encounter Details Date Type Department Care Team (Late st Contact Info) Description 08/06/2024 Refill [facility] [address] [place] [address] Trinity Lamar, SHELLFISH PROCESSING LABORER, [facility] [address] [place], [place] [id number] Refill (INCASSIA 0.35 MG tablet [Pharmacy Med [...] 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 Sujatha Lr RN SP ignition expert Triage 08/06/2024, 12:50 PM * Heri Smith [...] visit: None [employer] Embedded Refills, Reference: [id number], 08/06/2024 11:54:32 AM CDT, Pool: FARHEEN RICH REFILL OB/ HEALTHCARE SPECIALIST [[id number]] ([id number]) documented in this encounter Plan of Treatment Upcoming Encounters Date Type Department Care Team (Late st Contact Info) Description 09/05/2024 2:00 PM CDT Appointment [facility] [address] [place] [address]. [place] [address] Natalya Nguyen MD [address] [place] [phone] documented as of this encounter Visit Diagnoses Diagnosis Oral contraceptive pill surveillance Surveillance of previously prescribed contraceptive pill documented in this encounter Care Teams Benefits Specialist Relationship Specialty Start Date End Date Pcp, Mayank Peguero MD [place], [place] [id number] PCP - General 12/22/17 documented as of this encounter
== END 2024-08-20 18:41 | disposition home or self-care (01) ==
PROVIDERS: Emergency Provider Family Medicine
DX: R04.0 Epistaxis (principal)
CPT/HCPCS: 99283

== ENCOUNTER 2024-12-20 00:26 | Emergency (ER) | payer OTHER, SELFPAY ==
--- OUTSIDE RECORDS SUMMARY | 2024-11-19 15:00 | XMS_ITS | Encounter Summary ---
Author Organization [facility] Address [address] [place] [address] Care Team Providers Care Radiology Ct Technologist Name Role Phone Pcp, Pt Declines Primary Care Provider [phone] Encounter Details Date Type Department Care Team (Latest Contact Info) Description 11/19/2024 3:00 PM CDT Telemedicine [facility] [address] [place] [address] Michaela Morrissey MD [address] [place] [address] Attention deficit hyperactivity disorder (ADHD), combined type (HRC) (Primary Dx); Depressive disorder Social History Tobacco Use Types Packs/Day Years Used Date Smoking Tobacco: Never Cigarettes 0.3 4 - 10/21/2012 Smokeless Tobacco: Never Alcohol Use Standard Drinks/Week Comments Yes 0 (1 standard drink = 0.6 oz pur e alcohol) social/holidays PHQ-2 Answer Date Recorded PHQ-2 Score 0 11/19/2024 Financial Resource Strain Answer Date R ecorded [...] Industry Job Start Date Job End Date [employer] [facility] Not on file Not on file Not 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 If there are any emergencies, please call my office during office-hours, or contact our Careline after-hours. For any imminent emergencies, please contact 911, or seek immediate treatment at your local emergency department or crisis center. Office Careline (After-Hours): [phone] Michaela Morrissey MD documented in this encounter Progress Notes * Michaela Morrissey MD - 11/19/2024 3:00 PM CDT Ana Treadwell is a 39 y.o. old female called for Follow-up for psychiatric medication management. CT spent providing support related to stressors and education about illness and medication.this wasa video visit Current Outpatient Medications Medication Sig Dispense Refill ALPRAZolam (XANAX) 0.25 MG tablet Take 1 Tablet (0.25 mg) by mouth two times daily as needed. 20 Tablet 4 amphetamine-dextroamphetamine XR (ADDERALL XR) 30 MG 24 hour release capsule Take 1 Capsule (30 mg)by mouth daily for 30 days. 1 of 3 30 Capsule 0 [START ON 12/19/2024] amphetamine-dextroamphetamine XR (ADDERALL XR) 30 MG 24 hour release capsule Take 1 Capsule (30 mg) by mouth daily for 30 days. 2 of 3 Do not start before December 19, 2024. 30 Capsule 0 [START ON 01/18/2025] amphetamine-dextroamphetamine XR (ADDERALL XR) 30 MG 24 hour release capsule Take 1 Capsule (30 mg) by mouth daily for 30 days. 3 of 3 Do not start before January 18, 2025. 30 Capsule 0 amphetamine-dextroamphetamine XR (ADDERALL XR) 30 MG 24 hour release capsule Take 1 Capsule (30 mg)by mouth daily for 30 days. 1 of 3 30 Capsule 0 amphetamine-dextroamphetamine XR (ADDERALL XR) 30 MG 24 hour release capsule Take 1 Capsule (30 mg)by mouth daily for 30 days. 2 of 3 Do not start before July 12, 2024. 30 Capsule 0 amphetamine-dextroamphetamine XR (ADDERALL XR) 30 MG 24 hour release capsule Take 1 Capsule (30 mg)by mouth daily for 30 days. 3 of 3 Do not start before August 11, 2024. 30 Capsule 0 amphetamine-dextroamphetamine XR (ADDERALL XR) 30 MG 24 hour release capsule Take 1 Capsule (30 mg)by mouth daily. 30 Capsule 0 citalopram (CELEXA) 40 MG tablet Take 1 Tablet (40 mg) by mouth daily. 30 Tablet 1 INCASSIA 0.35 MG tablet TAKE 1 TABLET BY MOUTH EVERY DAY 90 Tablet 0 propranolol (INDERAL) 20 MG tablet TAKE 1-2 TABLETS BY MOUTH TWICE DAILY 360 Tablet 1 traZODone (DESYREL) 50 MG tablet Take 1-2 Tablets (50-100 mg) by mouth daily at bedtime. 60 Tablet 4 triamcinolone acetonide (KENALOG) 0.1 % cream Apply topically two times a day. 80 g 3 triamcinolone acetonide (KENALOG) 0.1 % ointment Apply topically two times daily as needed for Itching/Rash. Indications: Skin Inflammation 80 g 0 No current facility-administered medications for this visit. No current facility-administered medications for this visit. SUBJECTIVE:: Patient reports that she is doing well. She reports that she is not depressed she denies any anxiety or Panic attacks. Reports that the medications are doing well , . She works for the [employer] as well as for the [employer]. . She denies any feelings of hopelessness helplessness orany suicidal or homicidal ideation. Patient reports that she takes the medication on days when she is working or has something going onotherwise on the days when she does not have any significant thing to take care of she does not take it ROS: 10 point review of systems negative ALLERGIES: Patient has no known allergies. Drugs: no drugs or alcohol PAST MEDICAL HISTORY: Patient Active Problem List Diagnosis Depressive disorder (HRC) Attention deficit hyperactivity disorder (ADHD) (HRC) Screening for malignant neoplasm of cervix Mental Status Exam: Behavior: cooperative, engaged Speech: normal in rate and loudness Language: intact Thought process: logical and goal-directed Thought content: without delusions, hallucinations or suicidal ideation Associations: intact Mood: neutral Orientation: intact Attention: intact Memory: intact Fund of Knowledge: intact Insight: intact Judgement: intact ASSESSMENT: Patient with stable mood. Concentration issues appear to be well managed with her current medication DIAGNOSIS: Attention deficit disorder.depressive disorder nos PLAN: Medications: Patient will continue with current medications appears to be stable Discussed medication side effects and benefits expected and alternatives. Support provided related to stressors.Encouraged positive coping skills. Pt was counseled re: Abstinence from Alcohol/Recreational Drugs Diagnosis Education, Treatment Options, Prognosis Healthy Lifestyle Self-Injurious Behaviors Sleep Hygiene Safety Plan RTC in 1 yr or sooner if any worsening of symptoms.was told that it might need to be in person. The pt indicates understanding and agrees with plan. I discussed with the patient/parent that this visit is a telehealth visit that will be billed to their insurance. Reviewed potential benefits, risks and confidentiality of telehealth visits. Confirmed patients' current location and contact information. Developed a safety plan to be used in the event of an emergency or safety concerns. Made contingency plan in the event of technical problems. Explained that the appropriateness of telehealth visits is determined by the provider and that patient may need to be seen in clinic in the future. This visit was conducted via video Location of clinician: home Location of patient: home Michaela Morrissey MD. documented in this encounter Plan of Treatment Not on file documented as of this encounter Visit Diagnoses Diagnosis Attention deficit hyperactivity disorder (ADHD), combined type (HRC)- Primary Depressive disorder Depressive disorder, not elsewhere classified documented in this encounter Care Teams Radiology Ct Technologist Relationship Specialty Start Date End Date Pcp, Pt MD Mar[place] [address] PCP - General 12/22/17 documented as of this encounter
--- OUTSIDE RECORDS SUMMARY | 2024-12-20 00:27 | XMS_ITS | Continuity of Care Document ---
Author Name [facility] Organization [facility] Care Team Providers Care Nursing Assistant Name Role Phone [facility] Unavailable Unavailable Problems Combined list of problems from Department of Defense and Veterans Affairs facilities. It does not include entries that were removed or entered in error. Problem Status Onset Date Problem Type Date of Resolution Comments Source visit for: services physical in-theatre Inactive 06/13/2015 Condition DoD pain during urination (dysuria) Inactive 06/13/2015 Condition DoD foot pain (soft tissue) Active 06/04/2015 Condition DoD ADHD, PREDOMINANTLY INATTENTIVE TYPE Active Condition DoD joint pain, localized in the knee Active Condition DoD UPPER RESPIRATORY INFECTION Inactive Condition DoD Oral Contraceptives Active Condition Do D Allergies, Adverse Reactions, Alerts Combined list of allergies from Department of Defense and Veterans Affairs facilities. It does not include entries that were removed or entered in error. Substance Category Reaction Severity Reaction type Status Date Reported Comments Source No Known Allergies Drug allergy (disorder) active 12/17/2009 [facility] [place] [address] Immunizations Combined list of available immunizations from the Department of Defense and Veterans Affairs facilities. Immunization Series Date Given Administered By Site Reaction Lot Number CVX Code Drug Grades 1 Thru 6 Home Teacher Status Comments Source influenza, injectable, quadrivalent 2021 [id number] sanofi pasteur complet ed influenza , injectabl e, quadrival ent 04/22/22 Given Ambulat ory Pharmac y influenza, injectable, quadrivalent- pf 2020 [id number] 150 sanofi pasteur complet ed influenza , injectabl e, quadrival ent-pf 05/16/21 Given Ambulat ory Pharmac y COVID Vaccine Moderna 2020 TRANSCR IBED 207 complet ed COVID Vaccine Moderna 07/09/20 Given Ambulat ory Pharmac y COVID Vaccine Moderna 2020 TRANSCR IBED 207 complet ed COVID Vaccine Moderna 05/26/20 Given Ambulat ory Pharmac y influenza, injectable, quadrivalent- pf 2019 [id number] 150 Seqirus complet ed influenza , injectabl e, quadrival ent-pf 03/28/20 Given Ambulat ory Pharmac y tetanus-dipht h toxoids (Td) adult/adol 2019 [id number] 09 sanofi pasteur complet ed tetanus-d iphth toxoids (Td) adult/ado l 02/29/20 Given Ambulat ory Pharmac y influenza, injectable, quadrivalent- pf 2018 [id number] 150 Seqirus complet ed influenza , injectabl e, quadrival ent-pf 04/28/19 Given Ambulat ory Pharmac y measles/mumps /rubella virus vaccine 2018 [id number] Merck & Company Inc complet ed measles/m umps/rube lla virus vaccine 09/22/18 Given Ambulat ory Pharmac y typhoid Vi capsular polysaccharid e vac 2018 [id number] 101 sanofi pasteur complet ed typhoid Vi capsular polysacch aride vac 09/22/18 Given Ambulat ory Pharmac y anthrax vaccine 2018 [id number] 24 Emergent Biosolutions complet ed anthrax vaccine 08/26/18 Given Ambulat ory Pharmac y influenza, injectable, quadrivalent- pf 2017 [id number] 150 Seqirus complet ed influenza , injectabl e, quadrival ent-pf 03/25/18 Given Ambulat ory Pharmac y influenza, injectable, quadrivalent 2016 [id number] 158 [facility] complet ed influenza , injectabl e, quadrival ent 03/25/17 Given Ambulat ory Pharmac y influenza, seasonal, injectable-pf 2015 [id number] 140 CSL Behring complet ed influenza , seasonal, injectabl e-pf 03/26/16 Given Ambulat ory Pharmac y anthrax vaccine 2014 [id number] 24 Emergent Biosolutions complet ed anthrax vaccine 04/03/15 Given Ambulat ory Pharmac y influenza, injectable, quadrivalent- pf 2014 [id number] 150 ID Biomedical comple t ed influenza , injectabl e, quadrival ent-pf 03/16/15 Given Ambulat ory Pharmac y typhoid Vi capsular polysaccharid e vac 2014 [id number] 101 sanofi pasteur complet ed typhoid Vi capsular polysacch aride vac 08/30/14 Given Ambulat ory Pharmac y anthrax vaccine 2014 [id number] 24 Emergent [employer]olutions complet ed anthrax vaccine 08/30/14 Given Ambulat ory Pharmac y influenza virus vaccine, unspecified 2013 TRANSCR IBED 88 complet ed influenza virus vaccine, unspecifi ed 03/20/14 Given Ambulat ory Pharmac y Influenza, injectable, MDCK-pf 2012 [id number] 153 Novartis Pharmaceutica ls complet ed Influenza , injectabl e, MDCK-pf 03/23/13 Given Ambulat ory Pharmac y Influenza, injectable, MDCK-pf 2012 [id number] 153 Novartis Pharmaceutica ls complet ed Influenza , injectabl e, MDCK-pf 03/23/13 Given Ambulat ory Pharmac y Influenza, injectable, Madin [place] Canine Kidney, preservative free 1 2012 [id number] 153 Novartis Pharmaceutica l Chely. (NOV) complet ed Influenza , injectabl e, Madin [place] Canine Kidney, preservat caryn free DoD measles virus vaccine 0 2012 05 () Not Given measles virus vaccine DoD rubella virus vaccine 0 2012 06 () Not Given rubella virus vaccine DoD influenza, seasonal, injectable-pf 2011 [id number] 140 sanofi pasteur complet ed influenza , seasonal, injectabl e-pf 03/05/12 Given Ambulat ory Pharmac y influenza, seasonal, injectable-pf 2011 [id number] 140 sanofi pasteur complet ed influenza , seasonal, injectabl e-pf 03/05/12 Given Ambulat ory Pharmac y Influenza, seasonal, injectable, preservative free 0 2011 [id number] 140 Sanofi Pasteur ([facility]) complet ed Influenza , seasonal, injectabl e, preservat caryn free DoD influenza, seasonal, injectable 2010 141 Novartis Pharmaceutica ls complet ed influenza , seasonal, injectabl e 04/22/11 Given Ambulat ory Pharmac y influenza, seasonal, injectable 2010 141 Novartis Pharmaceutica ls complet ed influenza , seasonal, injectabl e 04/22/11 Given Ambulat ory Pharmac y Influenza, seasonal, injectable 1 2010 141 Novartis HEALBEtica l Chely. (NOV) complet ed Influenza , seasonal, injectabl e DoD hepatitis A adult vaccine 2010 [id number] 52 GlaxoSmithKli ne complet ed hepatitis A adult vaccine 05/29/10 Given Ambulat ory Pharmac y hepatitis A adult vaccine 2010 [id number] 52 GlaxoSmithKli ne complet ed hepatitis A adult vaccine 05/29/10 Given Ambulat ory Pharmac y hepatitis A vaccine, adult dosage 2 2010 [id number] 52 SmithKline (SKB) complet ed hepatitis A vaccine, adult dosage DoD influenza virus vaccine,split 2009 [id number] 15 CSL Behring complet ed influenza virus vaccine,s plit 02/25/10 Given Ambulat ory Pharmac y influenza virus vaccine,split 2009 [id number] 15 CSL Behring complet ed influenza virus vaccine,s plit 02/25/10 Given Ambulat ory Pharmac y influenza virus vaccine, split virus (incl. purified surface antigen)-reti red CODE 1 2009 [id number] 15 CSL Newspepper, Inc. (CS) complet ed influenza virus vaccine, split virus (incl. purified surface antigen)- retired CODE DoD hepatitis A adult vaccine 2009 [id number] 52 GlaxoSmithKli ne complet ed hepatitis A adult vaccine 10/21/09 Given Ambulat ory Pharmac y hepatitis A adult vaccine 2009 [id number] 52 GlaxoSmithKli ne complet ed hepatitis A adult vaccine 10/21/09 Given Ambulat ory Pharmac y measles, mumps and rubella virus vaccine 1 2009 03 () Not Given measles, mumps and rubella virus vaccine DoD varicella virus vaccine 1 2009 21 () Not Given varicella virus vaccine DoD hepatitis B vaccine, adult dosage 1 2009 43 () Not Given hepatitis B vaccine, adult dosage DoD hepatitis A vaccine, adult dosage 1 2009 [id number] [id number] 52 SmithKline (SKB) complet ed hepatitis A vaccine, adult dosage DoD tuberculin purified protein derivative 2009 [id number] 96 sanofi pasteur complet ed tuberculi n purified protein derivativ e 10/18/09 Given Ambulat ory Pharmac y Novel influenza-H1N 1-09, injectable 2009 [id number] 1 127 Novartis Pharmaceutica ls complet ed Novel influenza -W3R4-42, injectabl e 10/16/09 Given Ambulat ory Pharmac y tetanus, diphtheria, acellular pertu is 2009 [id number] 1CA 115 GlaxoSmithKli ne complet ed tetanus, diphtheri a, acellular pertussis 10/16/09 Given Ambulat ory Pharmac y influenza virus vaccine,split 2009 [id number] 1A 15 CSL Behring complet ed influenza virus vaccine,s plit 10/16/09 Given Ambulat ory Pharmac y meningococcal A,C,Y,W-135 (MCV4P) 2009 [id number] 114 sanofi pasteur complet ed meningoco ccal A,C,Y,W-1 35 (MCV4P) 10/16/09 Given Ambulat ory Pharmac y poliovirus vaccine, inactivated 2009 [id number] 10 sanofi pasteur complet ed polioviru s vaccine, inactivat ed 10/16/09 Given Ambulat ory Pharmac y tetanus, diphtheria, acellular pertu is 2009 [id number] 1CA 115 GlaxoSmithKli ne complet ed tetanus, diphtheri a, acellular pertussis 10/16/09 Given Ambulat ory Pharmac y poliovirus vaccine, inactivated 2009 [id number] 10 sanofi pasteur complet ed polioviru s vaccine, inactivat ed 10/16/09 Given Ambulat ory Pharmac y meningococcal A,C,Y,W-135 (MCV4P) 2009 [id number] 114 sanofi pasteur complet ed meningoco ccal A,C,Y,W-1 35 (MCV4P) 10/16/09 Given Ambulat ory Pharmac y Novel influenza-H1N 1-09, injectable 2009 [id number] 1 127 Novartis Pharmaceutica ls complet ed Novel influenza -[id number], injectabl e 10/16/09 Given Ambulat ory Pharmac y poliovirus vaccine, inactivated 1 2009 [id number] 10 Sanofi Pasteur ([facility]) complet ed polioviru s vaccine, inactivat ed DoD influenza virus vaccine, split virus (incl. purified surface antigen)-reti red CODE 1 2009 [id number] 1A 15 CS Newspepper, Inc. (CS) complet ed influenza virus vaccine, split virus (incl. purified surface antigen)- retired CODE DoD meningococcal polysaccharid e (groups A, C, Y and W-135) diphtheria toxoid conjugate vaccine (MCV4P) 1 2009 [id number] 114 Sanofi Pasteur ([facility]) complet ed meningoco ccal polysacch aride (groups A, C, Y and W-135) diphtheri a toxoid conjugate vaccine (MCV4P) DoD tetanus toxoid, reduced diphtheria toxoid, and acellular pertu is vaccine, adsorbed 1 2009 [id number] 1CA 115 SmithKline (SKB) complet ed tetanus toxoid, reduced diphtheri a toxoid, and acellular pertussis vaccine, adsorbed DoD Novel influenza-H1N 1-09, injectable 1 2009 [id number] 1 127 Novartis Orchid Software. (NOV) complet ed Novel influenza -[id number], injectabl e DoD Encounters Combined list of: 1) Encounters from Department of Veterans Affairs facilities going backup to the last 18 months, not all VA inpatient encounters are included; 2) Encounters from the Department of Defense facilities going backup to 280 months. Location Location Details Encounter Type Encounter Number Reason For Visit Attending Provider ADM Date DC Date Status Disposition Source [facility] [place] [place] [address]([facility]) OUTPATIENT [id number] 0920-bi rth control -(343) DEMI HUNTER 12/17 Released w/o Limitations [facility] [place] [address](T [facility]man d) [facility] [place] [place] [address] [id number] 0920-ri ght knee injury- (343/10 ) TAWANDA ROTHMAN 01/07 Released with Work/Duty Limitations [facility] [place] [address](T [facility]man d) [facility] [place] [place] [address]([facility]) OUTPATIENT [id number] - f/u bc refill (343/t- 10) TREVER VALVERDE 03/17 Released w/o Limitations [facility] [place] [address] OUTPATIENT [id number] Theater Provider 06/04 Released w/o Limitations [facility] OUTPATIENT [id number] Theater Provider 06/12 Released w/o Limitations [facility] OUTPATIENT [id number] Theater Provider 06/13 Released w/o Limitations [facility] Procedures Combined list of: 1) Procedures from Department of Veterans Affairs facilities going back up to [facility] 18 months, not all ID non-surgical procedures are included; 2) All procedures from the Department of [facility] facilities. Procedure Procedure Type Code Date Perfomer Comments Sourc e No data available for this section Ambulato ry Pharmacy PSYC TSTNG(PSYCODIAG ASSESS,EMOTITY,INT ELLECTUAL ABILITIES,PERSONAL ITY&PSYCOPATHOLOGY ,EG,MMPI&WAIS),W QUALIFIED HEALTH CARE PROFSIONAL INTERP&RPT,ADMINIS TERED MACHINE PULLER OVER,/HR,JARRED H TME,FCE-2-FCE 05/08/20 13 [facility] Psychologic Testing And Report Administered By Limnology Teacher Psychologic Testing And Report Administered By Limnology Teacher [id number] 05/08/20 13 PETE SEAY [facility] Psychiatric Evaluation Comprehensive Examination Psychiatric Evaluation Comprehensive Examination [id number] 05/08/20 13 PETE SEAY [facility] Social History Combined list of available smoking, tobacco, and other social history from Department of Defense and Veterans Affairs facilities. Social History Type Response Date Comment Sour e This section is an empty social history section. DoD Assessment and Plan Combined list of future care activities from Department of Defense and Veterans Affairs facilities (e.g., assessment and plan notes, appointments, orders, and referrals). Additional future care activities may be listed in the Plan of Care section. Result Assessment and Plan Date Source Assessment and Plan No data available for this section 12/20/2024 Ambulatory Pharmacy Functional Status Combined list of recent functional and cognitive assessments recorded at Department of Defense and Veterans Affairs (VA).VA Functional [place] Measurement (FIM) Scale: 1 = Total Assistance (Subject = 0% +), 2 = Maximal Assistance (Subject = 25% +), 3 = Moderate Assistance (Subject = 50% +), 4 = Minimal Assistance (Subject = 75% +), 5 = Supervision, 6 = Modified [place] (Device), 7 = Complete [place] (Timely, Safely). Assessment Date/Time Source Assessment Type Assessment Skill Assessment Score Assessment Details No data available for this section
--- OUTSIDE RECORDS SUMMARY | 2024-12-20 00:28 | XMS_ITS | Encounter Summary ---
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
--- OUTSIDE RECORDS SUMMARY | 2024-12-20 00:28 | XMS_ITS | Clinical Summary ---
Author Organization [employer] Address [address] [place] [address] Care Team Providers Care Metal Sprayer Name Role Phone [facility], [facility] Primary Care Provider Allergies No known active [...] on file Legal Sex Female 3:34 AM FRUIT VENDOR Gender Identity Not on file Sexual Orientation Not on file Last Filed Vital Signs Vital Sign Reading Time Taken Comments Blood Pressure 139/100 07/13/2022 2:39 AM FRUIT VENDOR Pulse 84 07/13/2022 2:39 AM FRUIT VENDOR Temperature 36.4 C (97.6 F) 07/13/2022 2:39 AM FRUIT VENDOR Respiratory Rate 16 07/13/2022 2:39 AM FRUIT VENDOR Oxygen Saturation 100% 07/13/2022 2:39 AM FRUIT VENDOR Inhaled Oxygen Concentration - - Weight 84 kg (185 lb 1.6 oz) 05/15/2017 9:20 AM FRUIT VENDOR Height 177.8 cm (5' 10) 07/06/2015 1:42 PM FRUIT VENDOR Body Mass Index 26.56 07/06/2015 1:42 PM FRUIT VENDOR Plan of Treatment Health Maintenance Due Date Last Done Comments ADVANCE CARE PLANNING 1985 ANNUAL REVIEW OF HM ORDERS 1985 MAMMO SCREENING 1984 YEARLY PREVENTIVE VISIT 10/05/1987 HIV SCREENING 10/05/1999 HEPATITIS C SCREENING 2002 HEPATITIS B VACCINE (1 of 3 - 19+ 3-dose series) 10/05/2003 DIABETES SCREENING 09/13/2010 09/14/2007 HPV VACCINE (2 - 3-dose series) 01/18/2011 12/21/2010 COVID-19 VACCINE (3 - season) 2024 07/09/2020, 05/26/2020 PHQ-2 (once per calendar year) 2024 LIPID 2024 INFLUENZA VACCINE (#1) 2025 , 05/16/2021, 03/28/2020, Additional history exists PAP 06/16/2025 06/16/2022, 06/16/2022 DTAP/TDAP/TD VACCINE (3 - Td or Tdap) 02/28/2030 02/29/2020, 10/16/2009 ZOSTER VACCINE (1 of 2) 2034 MENINGITIS VACCINE Aged Out 10/16/2009, 12/24/2002 No longer eligible based on patient's age to complete this topic PNEUMOCOCCAL VACCINE: PEDIATRICS (0 to 5 YEARS) AND AT-RISK PATIENTS (6 to 49 YEARS) Aged Out No longer eligible based on [...] Most Recently Relevant to Health Maintenance Insurance [facility] none (Work) [id number] [place] [id number] [employer] [facility] ADMINISTRATORS Care Teams Metal Sprayer Relationship Specialty Start Date End Date Clinic, [facility] [address] [place] [address] PCP - General 10/29/13
--- OUTSIDE RECORDS SUMMARY | 2024-12-20 00:28 | XMS_ITS | Encounter Summary ---
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
--- OUTSIDE RECORDS SUMMARY | 2024-12-20 00:29 | XMS_ITS | Encounter Summary ---
Author Organization [facility] Address [address] [place] [address] Care Team Providers Care International Student Advisor Name Role Phone Pcp, Pt Declines Primary Care Provider [phone] Reason for Visit * Reason Comments Refill INCASSIA 0.35 MG tab let [Pharmacy Med Name: INCASSIA 0.35 MG TABLET] Encounter Details Date Type Department Care Team (Late st Contact Info) Description 11/27/2024 Refill [facility] [address] [place] [address] Trinity Lamar, STORAGE CENTER MANAGER, CN [address] [place], [place] [id number] Refill (INCASSIA 0.35 MG tablet [Pharmacy Med [...] Industry Job Start Date Job End Date [employer] Not on file Not on file Not o n file [employer] Not on file Not on file Not on file [employer] Not on file Not on file Not on file documented as of this encounter Plan of Treatment Not on file documented as of this encounter Visit Diagnoses Diagnosis Oral contraceptive pill surveillance Surveillance of previously prescribed contraceptive pill documented in this encounter Care Teams International Student Advisor Relationship Specialty Start Date End Date Pcp, [place] [address] PCP - General 12/22/17 documented as of this encounter
--- OUTSIDE RECORDS SUMMARY | 2024-12-20 00:29 | XMS_ITS | Encounter Summary ---
Author Organization [facility] Address [address] [place] [address] Care Team Providers Care String Studies Director Name Role Phone Pcp, Pt Declines Primary Care Provider [phone] Reason for Visit * Reason Comments Refill INCASSIA 0.35 MG tab let [Pharmacy Med Name: INCASSIA 0.35 MG TABLET] Encounter Details Date Type Department Care Team (Late st Contact Info) Description 12/15/2024 Refill [facility] [address] [place] [address] Trinity Lamar, COTTON WRINGER, CN [address] [place], [place] [id number] Refill (INCASSIA 0.35 MG tablet [Pharmacy Med [...] Industry Job Start Date Job End Date [employer] [facility] Not on file Not on file 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 Last qualifying visit: None Next scheduled visit: None [employer] Embedded Refills, Reference: [id number], 12/15/2024 3:19:28 PM CDT, Pool: FARHEEN RICH REFILL OB/ CHIEF NURSING EXECUTIVE [[id number]] ([id number]) documented in this encounter Plan of Treatment Not on file documented as of this encounter Visit Diagnoses Diagnosis Oral contraceptive pill surveillance Surveillance of previously prescribed contraceptive pill documented in this encounter Care Teams String Studies Director Relationship Specialty Start Date End Date Pcp, Pt MD Marielena [place], [place] [id number] PCP - General 12/22/17 documented as of this encounter
--- OUTSIDE RECORDS SUMMARY | 2024-12-20 00:29 | XMS_ITS | Encounter Summary ---
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
--- OUTSIDE RECORDS SUMMARY | 2024-12-20 00:29 | XMS_ITS | Clinical Summary ---
Author Organization [email or web address] Address [address] [place] [address] Care Team Providers Care Structures Engineer Name Role Phone Pcp, Pt Declines Primary Care Provider [phone] Source Comments You are receiving this document [...] for each transition of care or referral. [email or web address] Allergies No known active allergies Medications * This document contains information received from the source organization and may not represent a complete record from that organization. triamcinolone acetonide (KENALOG) 0.1 % creamIndications: Rash and nonspecific skin eruption Apply topically two times a day. 80 g 3 12/29/19 24 Active propranolol (INDERAL) 20 MG tabletIndications :Elevated blood pressure reading without diagnosis of hypertension,Anxi ety (HRC),Hot flashes TAKE 1-2 TABLETS BY MOUTH TWICE [...] August 11, 2024. 30 Capsule 08/12/19 25 Active INCASSIA 0.35 MG tabletIndications :Oral contraceptive pill surveillance TAKE 1 TABLET BY MOUTH EVERY DAY 90 Tablet 08/07/19 25 Active triamcinolone acetonide (KENALOG) 0.1 % ointmentIndicatio ns:Dermatitis Apply topically two times daily as needed for Itching/Rash. Indications: Skin Inflammation 80 g 09/06/19 25 Active ALPRAZolam (XANAX) 0.25 MG tablet Take 1 Tablet (0.25 mg) by mouth two times daily as needed. 20 Tablet 4 11/20/19 25 Active citalopram (CELEXA) 40 MG tablet Take 1 Tablet (40 mg) by mouth daily. 30 Tablet 1 11/20/19 25 Active traZODone (DESYREL) 50 MG tablet Take 1-2 Tablets (50-100 mg) by mouth daily at bedtime. 60 Tablet 4 11/20/19 25 Active amphetamine-dextr oamphetamine XR (ADDERALL XR) 30 MG 24 hour release capsule Take 1 Capsule (30 mg) by mouth daily for 30 days. 1 of 3 30 Capsule 11/20/19 25 Active amphetamine-dextr oamphetamine XR (ADDERALL XR) 30 MG 24 hour release capsule Take 1 Capsule (30 mg) by mouth daily for 30 days. 2 of 3 Do not start before December 19, 2024. 30 Capsule 12/20/19 25 01/18/ 025 Active amphetamine-dextr oamphetamine XR (ADDERALL XR) 30 MG 24 hour release capsule Take 1 Capsule (30 mg) by mouth daily for 30 days. 3 of 3 Do not start before January 18, 2025. 30 Capsule 01/19/20 25 025 Active Active Problems Problem Noted Date Diagnosed Date [...] Encounters Date Type Department Care Team Description 12/15/2024 Refill [facility] [address] [place] [phone] Trinity Lamar APRN, CNM Refill (INCASSIA 0.35 MG tablet [Pharmacy Med Name: INCASSIA 0.35 MG TABLET]) 11/27/2024 Refill [facility] [address] [place] [phone] Trinity Lamar APRN CNM Refill (INCASSIA 0.35 MG tablet [Pharmacy Med Name: INCASSIA 0.35 MG TABLET]) 11/19/2024 3:00 PM CDT Telemedicine [facility] [address] [email or web address] [address] Michaela Morrissey MD Attention deficit hyperactivity disorder (ADHD), combined type (HRC) (Primary Dx); Depressive disorder 09/24/2024 Refill [facility] [address] [email or web address] [address] Michaela Morrissey MD Refill from Last 3 Months Immunizations Immunization Administration Dates Next Due 4vHPV (Gardasil) 12/21/2010 Flu Vac (3+ yrs) 04/22/2011 Influenza IIV4 (Quadrivalent) 0.5mL (92467) 04/22,03/20/2014 MPSV4 (Menomune) 12/24/2002 Moderna Monovalent 12+ 07/09/2020,05/26/2020 Family History Medical History Relation Name Comments Cancer, Breast Mother Coronary Artery Disease Maternal Grandfather ?[place] Macular Degeneration Maternal Grandmother Other Other lung [...] Industry Job Start Date Job End Date [facility] [employer] Not on file Not on file 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 file Not on file [employer] Not on file Not on file Not on file Last Filed Vital Signs Vital Sign Reading Time Taken Comments Blood Pressure 127/89 09/05/2024 1:25 PM CDT Pulse 72 09/05/2024 1:25 PM CDT Temperature 37 C (98.6 F) 09/06/2021 8:22 AM CDT Respiratory Rate 16 12/29/2023 3:08 PM CDT Oxygen Saturation 100% 09/05/2024 1:25 PM CDT Inhaled Oxygen Concentration - - Weight 90.7 kg (200 lb) 12/29/2023 3:08 PM CDT Height 177.8 cm (5' 10) 12/29/2023 3:08 PM CDT Body Mass Index 28.7 12/29/2023 3:08 PM CDT Plan of Treatment Health Maintenance Due Date Last Done Comments Diabetes Screening- (based on age and BMI) 1985 Hep C Screening (Preventive Services) 1984 DTaP/Tdap/Td Vaccine (1 - Tdap) 10/05/2003 HepB Vaccine (1) 10/05/2003 HPV Vaccine (2 - 3-dose series) 01/18/2011 12/21/2010 COVID-19 Vaccine (3 - season) 2024 07/09/2020, 05/26/2020 Adult Preventive Visit 06/16/2024 3, 09/25/2018, 12/03/2014, Additional history exists Mammogram 10/17/2024 10/18/2023 Influenza Vaccine (#1) 2025 1, 03/20/2014, 04/22/2011 Cervical Cancer Screening 06/16/20272022, 06/16/2022, 03/20/2014 Zoster/Shingles Vaccine (1 of 2) 2034 MCV4 Vaccine Aged Out 12/24/2002 No longer eligi ble based on patient's age to complete this topic HIV Screening (Preventive Services) Completed 03/20/2014 HepA Vaccine Aged Out No longer eligi ble based on patient's age to complete this topic Hib Vaccine Aged Out No longer eligi ble based on patient's age to complete this topic IPV (Polio) Vaccine Aged Out No longe r eligible based on patient's age to complete this topic Meningococcal B Vaccine Aged Out No l onger eligible based on patient's age to complete this topic Pneumococcal Vaccine Aged Out No long er eligible based on patient's age to complete this topic Procedures Procedure Name Priority Date/Time Associated Diagnosis Comments MM MAMMOGRAM DIAG BILAT W 3D SHORTY Routine 10/18/2023 1:43 PM CDT Mass of lower inner quadrant of right breast CYTOLOGY (PAP) Routine 06/16/2022 1:17 PM BRIDGE CLUB MANAGER Pap smear for cervical cancer screening HIV ANTIBODY Routine 03/20/2014 2:26 PM CDT Screen for STD (sexually transmitted disease) from Last 3 Months or Most Recently Relevant to Health Maintenance Results * MM Mammogram Diag Bilat W 3D Shorty (10/18/2023 1:43 PM CDT) Anatomical Region Laterality Modality Breast Bilateral Mammography 10/18/2023 1:43 PM CDT Narrative 10/18/2023 2:05 PM CDT EXAM: MM MAMMOGRAM DIAG BILAT W 3D SHORTY, MM US BREAST RT LOCATION: [facility] DATE: 10/18/2023 INDICATION: Palpable area of concern of the right breast. COMPARISON: None. MAMMOGRAPHIC FINDINGS: Bilateral full-field digital diagnostic mammograms performed. There are scattered areas of fibroglandular density. Images evaluated with the assistance of CAD. Breast tomosynthesis was used in interpretation. No suspicious mass or calcifications. ULTRASOUND FINDINGS: Targeted ultrasound in the area of palpable concern as indicated by the patient at the 4:00 right breast was performed. Normal tissue. No cyst or suspicious mass. IMPRESSION: ACR BI-RADS Category 1: Negative. Results given to the patient. Return to annual screening schedule is recommended. Procedure Note Opal Brand MD - 10/18/2023 EXAM: MM MAMMOGRAM DIAG BILAT W 3D SHORTY, MM US BREAST RT LOCATION: [facility] DATE: 10/18/2023 INDICATION: Palpable area of concern of the right breast. COMPARISON: None. MAMMOGRAPHIC FINDINGS: Bilateral full-field digital diagnostic mammogramsperformed. There are scattered areas of fibroglandular density. Imagesevaluated with the assistance of CAD. Breast tomosynthesis was used ininterpretation. No suspicious mass or calcifications. ULTRASOUND FINDINGS: Targeted ultrasound in the area of palpable concernas indicated by the patient at the 4:00 right breast was performed. Normaltissue. No cyst or suspicious mass. IMPRESSION: ACR BI-RADS Category 1: Negative. Results given to the patient. Return to annual screening schedule isrecommended. Trinity Lamar APRN, CNM RAD YEHUDA Final Res ult * PAP Test (06/16/2022 1:17 PM BRIDGE CLUB MANAGER) Case Report Pap Case: [id number] Authorizing Provider: Trinity Lamar APRN, CNM Collected: 06/16/2022 1317 Ordering Location: [facility] Received: 06/16/2022 1340 Gynecology Clinic First Screen: Susan Valenzuela CT (ASCP) Specimen: Pap Test, Routine, Cervix/Endocervix 06/29/2022 10:13 AM [facility] Pap Specimen Adequacy Satisfactory for evaluation, endocervical/miramontes sformation zone component present. 06/29/2022 10:13 AM [facility] Pap Interpretation (NILM) Negative for intraepithelial lesion or malignancy. 06/29/2022 10:13 AM [facility] at [address] BRIDGE CLUB MANAGER Pap Disclaimer The Pap test is a screening test designed to aid in the detection of cervical cancer and its precursor lesions. It is not a diagnostic procedure and should not be used as the sole means of detecting cervical cancer. Both false-positive and false-negative results may occur. 06/29/2022 10:13 AM [facility] Gross Description The specimen is received in SurePath fixative and properly labeled. 1 Pap-stained SurePath slide is prepared. 06/29/2022 10:13 AM [facility] Embedded Images 10:13 AM [facility] Other Specimen Type ENTIRE ENDOCERVIX / Unknown 06/16/2022 1:17 PM BRIDGE CLUB MANAGER 06/16/2022 1:40 PM BRIDGE CLUB MANAGER Comment:LMP: No LMP recorded . Trinity Lamar APRN, CNM LAB PATHOLOGY Final Res ult [address] [address], [facility] [phone] * HIV ANTIBODY (03/20/2014 2:26 PM CDT) HIV 1/2 Antibody Negative (Non Reactive) NEGNR [facility] Comment: HIV Antibody testing may be falsely negative during the window period. If the patient has had recent exposure (within the past four weeks), consider contacting Infectious Diseases for clarification. 03/20/2014 2:26 PM CDT 03/20/2014 2:34 PM CDT Narrative [facility] - 03/21/2014 12:25 PM CDT Performed at [facility], [address] [place] [address] [place] APRN, CNM LAB_1 Final Result [facility] [phone] from Last 3 Months or Most Recently Relevant to Health Maintenance Insurance MED[employer] ELECT MED[employer] ELECT [address] [place] [id number] MED[employer] ELECT [facility] DUSTIN RODRIGUEZ [id number] [place] [id number] [place] [id number] [employer] Care Teams Structures Engineer Relationship Specialty Start Date End Date Pcp, Pt MD Marielena [place], [place] [phone] PCP - General 12/22/17
--- OUTSIDE RECORDS SUMMARY | 2024-12-20 00:29 | XMS_ITS | Clinical Summary ---
Author Organization [employer] [facility] Address [address] [place] [address] Care Team Providers Care Real Time Analyst Name Role Phone Pcp, No Primary Care Provider Unavailabl e Allergies No known active allergies Medications No known medications Social History Tobacco Use Types Packs/Day Years Used Date Smoking Tobacco: Never Assessed Comments No Sex and Gender Information Value Date Recorded Sex Assigned at Not on file Legal Sex Female 7:39 AM REVISING CLERK Gender Identity Not on file Sexual Orientation Not on file Obstetrics History Last Filed Vital Signs Vital Sign Reading Time Taken Comments Blood Pressure 128/91 06/07/2024 8:16 PM REVISING CLERK Pulse 100 06/07/2024 8:16 PM REVISING CLERK Temperature 36.1 C (97 F) 06/07/2024 8:16 PM REVISING CLERK Respiratory Rate 16 06/07/2024 8:16 PM REVISING CLERK Oxygen Saturation 97% 06/07/2024 8:16 PM REVISING CLERK Inhaled Oxygen Concentration - - Weight 83.9 kg (185 lb) 06/07/2024 8:16 PM REVISING CLERK Height 177.8 cm (5' 10) 06/07/2024 8:16 PM REVISING CLERK Body Mass Index 26.54 06/07/2024 8:16 PM REVISING CLERK Plan of Treatment Health Maintenance Due Date Last Done Comments Tetanus booster 10/05/1995 Depression screening for age 12+ 1996 HIV for age 15-65 10/05/1999 BMI (ht and wt on same day) for age 18+ 2002 Hepatitis C screening for ag e 18-79 2002 Hepatitis B series for 19+ ( 1 of 3 - 19+ 3-dose series) 10/05/2003 Pap test for age 21-65 2005 COVID-19 vaccine series ( season) 2024 07/09/2020, 05/26/2020 Influenza Vaccine (#1) 2025 Pneumococcal series for age 6-49 Aged Out No longer eligible b ased on patient's age to complete this topic Insurance [facility] * Guarantor: GAD CONTRACT,[facility] Account Type Relation to Patient Date of Phone Billing Address Contract [address] [facility] [address] [place] [address] Care Teams Real Time Analyst Relationship Specialty Start Date End Date Pcp, No . PCP - General 06/28/18
[2024-12-20 00:32] VITALS: PULSE 112; RESP 18; TEMP 37.6; O2SAT 100; BMI 25.8
[2024-12-20 00:38] VITALS: BP 155/120
--- NOTE | 2024-12-20 00:46 | CRLHL7_ITS ---
For Patients: As a result of the Cures Act, medical imaging exams and procedure reports are released immediately into your electronic medical record. You may view this report before your referring provider. If you have questions, please contact your health care provider. INDICATION: Lumbar spine Injury, tripped over stump TECHNIQUE: Lumbar spine radiograph 2 views COMPARISON: None FINDINGS: Bone: No acute fractures or aggressive bone lesions are identified. Alignment is normal. Disc: Moderate degenerative disc narrowing seen at L4-5 and L5-S1. Bilateral facet osteoarthritis noted at L4-5 and L5-S1. Soft tissue: Unremarkable. No radiopaque foreign bodies are seen. IMPRESSION: 1. No acute osseous injuries or abnormalities are noted. Dictated by Christopher Batista MD @ 12/20/2024 1:02:32 AM Dictated by: Christopher Batista MD @ 12/20/2024 01:02:36 (Electronically Signed)
--- NOTE | 2024-12-20 00:46 | ED.BACK ---
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 She comes in tonight intoxicated with back pain. She states that she was working 4 days ago when stumbled. Since that time she has been having increasing back pain with radiculopathy down the left leg. She has had no bowel or bladder symptoms no fevers no chills. Patient is somewhat agitated at the time of arrival as she is brought in by her mother. Patient had no other injuries and states she feels like her leg is going to give out on the left. She has chronic back issues. She is on stable medication. Related Data Home Medications ?Medication ?Instructions ?Recorded ?Confirmed dextroamphetamine-amphetamine ER 1 cap PO DAILY 03/04/23 12/20/24 30 mg 24hr capsule,extend release trazodone 50 mg tablet 100 mg PO QPM PRN 03/04/23 12/20/24 alprazolam 0.25 mg tablet mg PO 10/03/23 10/03/23 citalopram 20 mg tablet 20 mg PO DAILY 10/03/23 12/20/24 norethindrone (contraceptive) 0.35 0.35 mg PO DAILY 08/20/24 12/20/24 mg tablet ([facility]) Allergies Allergy/AdvReac Type Severity Reaction Status Date / Time No Known Drug Allergies Allergy Verified 12/20/24 00:39 Review of Systems Status of ROS: Reports: 10 or more systems reviewed and unremarkable except as noted in History and below [facility] Medical History Pyelonephritis ?N12 - Tubulo-interstitial nephritis, not specified as acute or chronic (ICD-10) Fever ?R50.9 - Fever, unspecified (ICD-10) Social History Smoking Status: Never smoker Do you use any of these nicotine containing products: None How often do you have a drink containing alcohol: never How often do you have six or more drinks on one occasion: Never AUDIT-C Alcohol total score: 0 Non-prescribed substance use: denies use service: No Exam Narrative: Exam Narrative: EXAM GENERAL: Patient appears to be intoxicated. EYES: No scleral icterus. ENT: Tympanic membranes and oropharynx normal. THYROID: no thyroid nodules or thyromegaly. LYMPH: No supraclavicular or cervical lymphadenopathy. SKIN: Visible skin seen during exam normal or with benign process only. EXT: No dependent lower extremity pedal edema. HEART: Regular rate and rhythm with no murmurs, rubs, or gallops. LUNGS: Clear to auscultation bilaterally with no crackles or wheezes. ABD: Soft, non tender, non distended. PSYCH: Good eye contact, speech is not pressured. Neurologic cranial nerves 2-12 grossly intact no focal defects. Const: Vital Signs, click to edit/add: Vital Signs - 24 hr 12/20/24 00:32 12/20/24 00:38 Temperature 99.7 F H Pulse Rate [Pulse Oximeter] 112 H Respiratory Rate 18 Blood Pressure [Le ft Upper Arm] 155/120 H Pulse Oximetry 100 Oxygen Delivery Me thod Room Air Course Course ED Course: Patient seen examined. X-rays of the lumbar spine pending. Vital Signs Vital signs: Initial Vital Signs Temperature 99.7 F H 12/20/24 00:32 Temperature Source Temporal Artery Scan 12/20/24 00:32 Pulse Rate 112 H 12/20/24 00:32 Pulse Rhythm Regular 12/20/24 00:32 Respiratory Rate 18 12/20/24 00:32 Pulse Oximetry 100 12/20/24 00:32 Oxygen Delivery Method Room Air 12/20/24 00:32 Vital Signs Temperature 99.7 F H 12/20/24 00:32 Pulse Rate 112 H 12/20/24 00:32 Respiratory Rate 18 12/20/24 00:32 Pulse Oximetry 100 12/20/24 00:32 Oxygen Delivery Method Room Air 12/20/24 00:32 Temperature 99.7 F H 12/20/24 00:32 Pulse Rate 112 H 12/20/24 00:32 Respiratory Rate 18 12/20/24 00:32 Blood Pressure 155/120 H 12/20/24 00:38 Pulse Oximetry 100 12/20/24 00:32 Oxygen Delivery Method Room Air 12/20/24 00:32 MDM - Back Pain/Injury MDM Narrative Medical decision making narrative: Patient's x-rays are unremarkable upon my review as well as radiology's overview. Did give the patient 30 mg of Toradol IM. Her back pain is likely due to a strain of her lumbar region. Differential diagnosis includes but not limited to fracture abscess sciatica of tumor. I did recommend Tylenol 1000 mg 4 times a day as needed ice and prednisone which I did placement in see meds for her for the next 5 days. Discharge Plan Discharge Clinical Impression: Strain of lumbar region Patient Disposition: Home, Self-Care Condition: Stable Instructions: Back Pain (ED) Additional Instructions: Prednisone as directed Tylenol 1000 mg 4 times a day as needed Ice Rest Follow-up with your doctor as needed. Activity Level: No Restrictions Discharge Diet: Regular Prescriptions: No Action dextroamphetamine-amphetamine 30 mg capsule,extended release 24hr 1 cap PO DAILY trazodone 50 mg tablet 100 mg PO QPM PRN citalopram 20 mg tablet 20 mg PO DAILY alprazolam 0.25 mg tablet PO norethindrone (contraceptive) [[facility]] 0.35 mg tablet 0.35 mg PO DAILY Follow Up/Referrals: Provider,Not a Local [Primary Care Provider, Family Practice] Stand Alone Forms: [facility] Info Instructions
[2024-12-20 01:35] VITALS: BP 131/98; PULSE 100; RESP 18
== END 2024-12-20 01:36 | disposition home or self-care (01) ==
PROVIDERS: Emergency Provider Internal Medicine
DX: S39.012A Strain of muscle, fascia and tendon of lower back, initial encounter (principal); F10.129 Alcohol abuse with intoxication, unspecified
CPT/HCPCS: 72100; 96372; 99283; J1885

== ENCOUNTER 2025-05-01 13:05 | Emergency (ER) | payer OTHER, SELFPAY ==
[2025-05-01 13:06] VITALS: BP 154/116; PULSE 100; TEMP 36.3; O2SAT 98; BMI 28.7
--- NOTE | 2025-05-01 13:24 | ED.GENADULT ---
HPI - General Adult General Chief complaint: Shortness of Breath/Dyspnea Stated complaint: Flu symptoms Time Seen by Provider: 05/01/25 13:14 History of Present Illness HPI narrative: Just before alex pt . had norovirus . Today pt. suddenly felt weak and yucky and had to sit down in the shower. She also felt sob She thinks she has the flu for over a week. No fever now. No chills. 39-year-old woman presenting to the emergency department after just feeling unwell like she might be about to pass out. Recent illness includes norovirus in around Alex. Has felt like glass in her throat. 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 Not exactly short of breath. Feels dehydrated that she could benefit from some IV fluids. Would note that she is tachycardic in her vitals. Was worried she was going to pass out in the shower. Called for help as she was alone. No palpitations or chest pain. Ears feel full. Related Data Home Medications ?Medication ?Instructions ?Recorded ?Confirmed dextroamphetamine-amphetamine ER 1 cap PO DAILY 03/04/23 12/20/24 30 mg 24hr capsule,extend release trazodone 50 mg tablet 100 mg PO QPM PRN 03/04/23 12/20/24 alprazolam 0.25 mg tablet mg PO 10/03/23 10/03/23 citalopram 20 mg tablet 20 mg PO DAILY 10/03/23 12/20/24 norethindrone (contraceptive) 0.35 0.35 mg PO DAILY 08/20/24 12/20/24 mg tablet ([facility]) Previous Rx's ?Medication ?Instructions ?Recorded prednisone 20 mg tablet 40 mg (2 x 20 mg) PO DAILY 5 days 05/01/25 #10 tabs Allergies Allergy/AdvReac Type Severity Reaction Status Date / Time No Known Drug Allergies Allergy Verified 12/20/24 00:39 Review of Systems Status of ROS: Reports: 6 or more systems reviewed and unremarkable except as noted in History and below [facility] Medical History Pyelonephritis ?N12 - Tubulo-interstitial nephritis, not specified as acute or chronic (ICD-10) Fever ?R50.9 - Fever, unspecified (ICD-10) Social History Smoking Status: Never smoker Do you use any of these nicotine containing products: None How often do you have a drink containing alcohol: never How often do you have six or more drinks on one occasion: Never AUDIT-C Alcohol total score: 0 Non-prescribed substance use: denies use service: No Exam Narrative: Exam Narrative: Pleasant. NAD but appears tired. Cranial nerves 2-12 intact. No facial swelling or tenderness. TMs WNL. Oropharynx is moist with trace erythema but no cervical lymphadenopathy. Lungs are clear. Heart in elevated rate and regular rhythm. Abdomen is soft nontender. Const: Vital Signs, click to edit/add: Vital Signs - 24 hr 05/01/25 13:06 05/01/25 13:50 05/01/25 13:50 Temperature 97.4 F L 97.4 F L 97.4 F L Pulse Rate [Right Radial] 100 100 88 Respiratory Rate 18 Blood Pressure [Ri ght Upper Arm] 154/116 H 154/116 H 129/95 H Pulse Oximetry 98 98 98 Oxygen Delivery Me thod Room Air Room Air Room Air 05/01/25 15:07 Temperature 98.8 F Pulse Rate [Right Radial] 83 Respiratory Rate 18 Blood Pressure [Ri ght Upper Arm] 130/104 H Pulse Oximetry 98 Oxygen Delivery Me thod Room Air Documenting provider has reviewed patient's vital signs: yes Course Vital Signs Vital signs: Initial Vital Signs Temperature 97.4 F L 05/01/25 13:06 Temperature Source Temporal Artery Scan 05/01/25 13:06 Pulse Rate 100 05/01/25 13:06 Blood Pressure 154/116 H 05/01/25 13:06 Blood Pressure Mean 128 H 05/01/25 13:06 Pulse Oximetry 98 05/01/25 13:06 Oxygen Delivery Method Room Air 05/01/25 13:06 Vital Signs Temperature 97.4 F L 05/01/25 13:06 Pulse Rate 100 05/01/25 13:06 Blood Pressure 154/116 H 05/01/25 13:06 Pulse Oximetry 98 05/01/25 13:06 Oxygen Delivery Method Room Air 05/01/25 13:06 Temperature 98.8 F 05/01/25 15:07 Pulse Rate 83 05/01/25 15:07 Respiratory Rate 18 05/01/25 15:07 Blood Pressure 130/104 H 05/01/25 15:07 Pulse Oximetry 98 05/01/25 15:07 Oxygen Delivery Method Room Air 05/01/25 15:07 Medications Administered Medications: Discontinued Medications Generic Name Dose Route Start Last Admin Trade Name Chioma PRN Reason Stop Dose Admin Sodium Chloride 1,000 mls @ 1,000 mls/hr 05/01/25 13:35 05/01/25 13:57 0.9 % Sodium Chloride 1000 Ml IV 05/01/25 14:34 1,000 mls/hr .Q1H ONE Administration Ketorolac Tromethamine 30 mg 05/01/25 13:35 05/01/25 13:57 Ketorolac 30 Mg/Ml Inj IVP 05/01/25 13:36 30 mg ONCE ONE Administration Medical Decision Making MDM Narrative Medical decision making narrative: Suspect type a influenza given community prevalence but will screen for other. IV hydration as possible. 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 Eustachian tube congestion contributing to disequilibrium and malaise? Throat does not look like mono. She has no posterior lymphadenopathy. Too soon likely in illness to screen for mono spot. No history of significant anemia. Normal when last checked in labs IV fluids and normal saline, ketorolac. EKG looking for evidence of any arrhythmia. Independently reviewed by me looks WNL as below. Following fluid resuscitation overall is improved. Does appear to have more energy. Is later accompanied here by her parents. Swabs including strep are negative. See patient discharge plan for further discussion Focus on hydration. Consider sleeping under the mist of a cool mist humidifier. If you are still having significantly sore throat 5-7 days from now, would consider getting tested for mono. Of course be seen sooner for increasing difficulty swallowing or certainly breathing. Prescribing course of prednisone as this might help clear some of the facial symptoms. Consider taking pseudoephedrine for drying/decongestion. Medical Records Medical records reviewed: Yes I reviewed the patient's medical records Lab Data Lab results reviewed: Yes I reviewed the patient's lab results Labs: Lab Results 05/01/25 Range/Units 13:20 SARS-CoV-2 (PCR) Negative SARS-CoV-2 (Negative) Influenza Type A (PCR) Negative PCR FLU A (Negative) Influenza Type B (PCR) Negative PCR FLU B (Negative) RSV (PCR) Negative PCR RSV (Negative) Group A Strep DNA NOT DETECTED (Not Detectd) ECG Data Attestation: I personally reviewed and interpreted this ECG as follows: (Normal sinus rhythm. Rate of 80) Discharge Plan Discharge Clinical Impression: Nonspecific syndrome suggestive of viral illness, Fatigue Patient Disposition: Home w/ Parent or Adult Condition: Improved Additional Instructions: Focus on hydration. Consider sleeping under the mist of a cool mist humidifier. If you are still having significantly sore throat 5-7 days from now, would consider getting tested for mono. Of course be seen sooner for increasing difficulty swallowing or certainly breathing. Prescribing course of prednisone as this might help clear some of the facial symptoms. Consider taking pseudoephedrine for drying/decongestion. Prescriptions: New prednisone 20 mg tablet 40 mg PO DAILY 5 Days Qty: 10 1RF No Action dextroamphetamine-amphetamine 30 mg capsule,extended release 24hr 1 cap PO DAILY trazodone 50 mg tablet 100 mg PO QPM PRN citalopram 20 mg tablet 20 mg PO DAILY alprazolam 0.25 mg tablet PO norethindrone (contraceptive) [[facility]] 0.35 mg tablet 0.35 mg PO DAILY Follow Up/Referrals: Provider,Not a Local [Primary Care Provider, Family Practice] [facility]: [facility] Info Instructions
[2025-05-01 13:50] VITALS: BP 129/95; BP 154/116; PULSE 100; PULSE 88; RESP 18; TEMP 36.3; O2SAT 98
[2025-05-01 14:13] LABS: Strep A DNA Probe* NOT DETECTED (Not Detectd)
[2025-05-01 14:25] LABS: PCR FLU A Negative PCR FLU A (Negative); PCR FLU B Negative PCR FLU B (Negative); PCR RSV Negative PCR RSV (Negative); SARS PCR* Negative SARS-CoV-2 (Negative)
[2025-05-01 15:07] VITALS: BP 130/104; PULSE 83; RESP 18; TEMP 37.1; O2SAT 98
== END 2025-05-01 15:05 | disposition home or self-care (01) ==
PROVIDERS: Emergency Provider Family Medicine
DX: R11.2 Nausea with vomiting, unspecified (principal); R53.1 Weakness
CPT/HCPCS: 87637; 87651; 93005; 96374; 99284; A0425; A0429; J1885; J7030